=== PATIENT | female | born 1990 | race Caucasian/White ===

== ENCOUNTER 2020-03-26 08:59 | Outpatient (CLI) | payer OTHER, SELFPAY ==
--- NOTE | 2020-04-02 10:20 | SLEEP_ITS ---
Home Sleep Test DATE OF STUDY: 03/26/2020 ORDERING PHYSICIAN: Luis Miguel Lisa MD. REASON FOR THIS STUDY: Excessive fatigue, poor sleep. HISTORY: This patient is a 29-year-old female, 5 feet 7 inches tall, weighing 182 pounds with a body mass index of 28.5. She has constant fatigue and tiredness. She has no energy during the day. She looks forward to going to sleep as soon as she wakes in the morning because she is so tired. Her sleep is non-refreshing. She had poor sleep her entire life. She rarely awakens from sleep feeling short of breath. She rarely awakens at night with heartburn, belching, or coughing. She rarely snores. She never snores loudly enough that others complain about it. There is a family history with her mother having sleep apnea. She occasionally has trouble sleeping if she has a cold. She occasionally wakes up gasping for breath at night. She does not have breathing problems at night observed by others. She rarely sweats excessively at night. She frequently notices her heart pounding or beating irregularly at night. She occasionally falls asleep during the day, never involuntarily and never while driving. She does not have loss of muscle tone with strong emotion. She rarely has daytime difficulties due to excessive sleepiness. She does not feel paralyzed on waking or falling asleep and does not have vivid dreamlike scenes upon awakening or falling asleep. She is never afraid to go to sleep. She rarely has nightmares. She frequently remembers her dreams. She occasionally has racing thoughts, never feels sad or depressed. She occasionally has anxiety. She frequently has muscular tension. She occasionally notices parts of her body jerking. She does not kick at night. She occasionally has crawly achy feelings in the legs and has leg pain at night. She rarely has morning jaw pain. She occasionally grinds her teeth during sleep. She frequently is bothered by pain during the day. She is occasionally awakened by pain during the night. She occasionally wakes up feeling stiff in the morning with sore achy muscles or pain in the neck and spine joint. She has dizziness, fatigue, headaches, palpitations, and bowel disturbance. Normal bedtime is 9 p.m., taking 15 minutes to fall asleep, typically waking 5 times with most of her awakenings being after 4:30 in the morning. When she does wake, she will use the bathroom around 4:30 a.m., she will try to sleep again for another hour before she has to get up around 5 a.m. She goes to bed on the weekends between 9 and 10 p.m. and will wake up at 6 a.m. on the weekends. She may stay in the bed an hour after waking. She tries to sleep longer on the weekend, but her body is used to getting up earlier. She does take short naps in the afternoon or evening. A short nap is not refreshing. She is usually drowsy in the morning for 3 hours or longer. MEDICAL COMORBIDITIES: 1. History of stroke in July 2010 with right-sided weakness and expressive aphasia. This was in the left frontal lobe, the right frontal lobe, and the right temporal occipital lobe. 2. 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 3. History of epicardial and endocardial ablation. 4. Anemia. 5. Cardiomyopathy. 6. Premature ventricular contractions. MEDICATIONS: Fluticasone 50 mcg 2 sprays each nostril daily, gabapentin 300 mg daily, lisinopril 5 mg twice a day, Norethindrone 0.35 mg daily, Rivaroxaban 20 mg daily. HABITS: Never smoked tobacco. Caffeine 1-2 beverages daily. Alcohol, 1 to 2 per week. No recreational drugs. DESCRIPTION OF THE STUDY: On the [place] Sleepiness Scale, her score is 6. This was conducted as an unattended type 3 portable home sleep test with 4 channel monitoring in
== END 2020-03-26 09:00 | disposition home or self-care (01) ==
LOC: ANHCSM 09:18
PROVIDERS: Visit Provider Internal Medicine Cardiovascular Disease
DX: G47.10 Hypersomnia, unspecified (principal)
CPT/HCPCS: 95806

== ENCOUNTER 2020-06-25 03:44 | Outpatient (CLI) | payer OTHER, SELFPAY ==
[2020-06-25 20:39] LABS: SARS-CoV-2 RNA PCR Positive
== END 2020-06-25 03:45 | disposition home or self-care (01) ==
LOC: ANHCOVIDDT 03:44
PROVIDERS: Visit Provider Internal Medicine Critical Care Medicine
DX: U07.1 COVID-19 (principal)
CPT/HCPCS: 87635; C9803; U0003

== ENCOUNTER 2020-08-14 13:38 | Outpatient (CLI) | payer OTHER, SELFPAY ==
--- NOTE | ~2020-08-14 | CT_ITS ---
EXAMINATION: CT brain wo con EXAM DATE: 08/14/2020 13:56 INDICATION: Stroke follow-up. TECHNIQUE: Spiral CT of the head was performed without contrast. Axial, coronal and sagittal images were reviewed. The dose-length product (DLP) for this examination was 529.67 mGy-cm. The exposure w as tailored according to patient size, and iterative reconstruction (ASIR) was used as additional dos e reduction technique. Comparison is made to prior examination from 03/08/2013. FINDINGS: There is no acute intraparenchymal hemorrhage. No evidence of intraparenchymal brain mass lesion. No evidence of acute infarction. There is no mass effect or midline shift. The ventricles are normal in size. There are no extra-axial collections. There are no acute calvarial fractures. T he orbits are unremarkable. Soft tissue is unremarkable. The visualized sinuses and mastoid air bebeto ls are well aerated. IMPRESSION: 1. Unremarkable head CT examination. Reviewed, dictated and finalized at location B. Y LEVEL ACCOUNT MANAGER
== END 2020-08-14 13:39 | disposition home or self-care (01) ==
LOC: ANHIMG 13:42
PROVIDERS: PCP Family Medicine
DX: Z86.73 Personal history of transient ischemic attack (TIA), and cerebral infarction without residual deficits (principal)
CPT/HCPCS: 70450

== ENCOUNTER 2020-09-17 00:25 | Outpatient (CLI) | payer OTHER, SELFPAY ==
[2020-09-17 17:34] LABS: SARS-CoV-2 RNA PCR Negative
== END 2020-09-17 00:26 | disposition home or self-care (01) ==
LOC: ANHCOVIDDT 00:25
PROVIDERS: PCP Family Medicine; Visit Provider Internal Medicine Critical Care Medicine
DX: R68.89 Other general symptoms and signs (principal); Z20.822 Contact with and (suspected) exposure to COVID-19
CPT/HCPCS: C9803; U0003; U0005

== ENCOUNTER 2020-09-19 08:38 | Outpatient (CLI) | payer OTHER, SELFPAY ==
--- NOTE | 2020-09-21 11:48 | WPDSLEEPSTUD ---
Sleep Study Date of Study: 09/19/20 Ordering Provider: Luis Miguel Lisa MD; primary is Simone Dubon MD Interpreting Physician: Tete Drummond MD Sleep Study Type: Polysomnogram Height: 1.7 m Weight: 83.915 kg Body Mass Index: 29.0 Neck Circumference: 35.56 cm [employer]: 8 Reason for Sleep Study Excessive daytime sleepiness, impaired daytime functioning Home Sleep Test Mar 26, 2020 that was negative; AIi 1, lowest saturation 93% Sleep History Prasanna Mack is a 30 year old female with constant fatigue and tiredness. She has no energy during the day. She looks forward to going to sleep as soon as she wakes in the morning because she is so tired. Her sleep is non-refreshing. She had poor sleep her entire life. She rarely awakens from sleep feeling short of breath. She rarely awakens at night with heartburn, belching, or coughing. She rarely snores. She never snores loudly enough that others complain about it. There is a family history with her mother having sleep apnea. She occasionally has trouble sleeping if she has a cold. She occasionally wakes up gasping for breath at night. She does not have breathing problems at night observed by others. She rarely sweats excessively at night. She frequently notices her heart pounding or beating irregularly at night. She occasionally falls asleep during the day, never involuntarily and never while driving. She does not have loss of muscle tone with strong emotion. She rarely has daytime difficulties due to excessive sleepiness. She does not feel paralyzed on waking or falling asleep and does not have vivid dreamlike scenes upon awakening or falling asleep. She is never afraid to go to sleep. She rarely has nightmares. She frequently remembers her dreams. She occasionally has racing thoughts, never feels sad or depressed. She occasionally has anxiety. She frequently has muscular tension. She occasionally notices parts of her body jerking. She does not kick at night. She occasionally has crawly achy feelings in the legs and has leg pain at night. She rarely has morning jaw pain. She occasionally grinds her teeth during sleep. She frequently is bothered by pain during the day. She is occasionally awakened by pain during the night. She occasionally wakes up feeling stiff in the morning with sore achy muscles or pain in the neck and spine joint. She has dizziness, fatigue, headaches, palpitations, and bowel disturbance. Normal bedtime is 9 p.m., taking 15 minutes to fall asleep, typically waking 5 times with most of her awakenings being after 4:30 in the morning. When she does wake, she will use the bathroom around 4:30 a.m., she will try to sleep again for another hour before she has to get up around 5 a.m. She goes to bed on the weekends between 9:00 p.m. and 10 p.m., wakes up at 6:00 a.m. on the weekends. She may stay in the bed an hour after waking. She tries to sleep longer on the weekend, but her body is used to getting up earlier. She does take short naps in the afternoon or evening. A short nap is not refreshing. She is usually drowsy in the morning for 3 hours or longer. HABITS: Never smoked tobacco. Caffeine 1-2 beverages daily. Alcohol, 1 to 2 per week. No recreational drugs. 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
[2020-09-21 13:37] VITALS: BMI 29.0
--- NOTE | 2020-09-21 13:38 | WPDSLEEPSTUD ---
Sleep Study Date of Study: 09/20/20 Ordering Provider: Luis Miguel Lisa MD; Simone Dubon is primary care Sleep Study Type: Multiple Sleep Latency Test Height: 1.7 m Weight: 83.915 kg Body Mass Index: 29.0 [place]: 6 Reason for Sleep Study This multiple sleep latency follows a nocturnal polysomnogram with 339.5 minutes, slightly short of the 360 minutes which is standard. The patient is having this test for evaluation of excessive daytime sleepiness. Sleep History See report from Sep 18, 2020. 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 Stroke Jul 2010; right-sided weakness and expressive aphasia; L frontal lobe, R frontal, L temp-occipital lobes Surgical History Surgical History H/O cardiac radiofrequency ablation H/O colonoscopy H/O endoscopy H/O exploratory laparotomy [place] teeth removed Family History Family History Father Hypertension Patient's father is in good health Grandparent Carcinoma of colon Diabetes mellitus Endometrial cancer Breast cancer Sibling Patient's brother is in good health Mother Family history of gynecological problem Social History Social History Smoking status: Never smoker Second hand tobacco smoke exposure: No Alcohol intake: current Medications Home Medications Medication Instructions Recorded Confirmed Type levonorgestrel 20 mcg/24 hours (6 1 device I-UTERINE ONCE 08/23/19 History yrs) 52 mg intrauterine device lisinopril 10 mg tablet 10 mg PO DAILY 08/23/19 History rivaroxaban 20 mg tablet 20 mg PO DAILY 08/23/19 History gabapentin 300 mg capsule 300 mg PO DAILY 01/19/20 History norethindrone (contraceptive) 0.35 0.35 mg PO DAILY #84 tablet 02/01/20 Rx mg tablet ivabradine 5 mg tablet 5 mg PO BID 08/01/20 History Sleep Procedure The standard montage included EEG, EOG, submental EMG, EKG, respiratory flow and snore channel monitoring. The test was conducted in the usual manner an hour and a half after waking. The patient was given 5 opportunities to nap in a quiet dark room free from distraction. Nap number Start time of nap End time of nap Sleep latency Rem latency 1 8:28 a.m. 8:48 a.m. 20 minutes N/A 2 10:33 a.m. 10:53 a.m. 20 minutes N/A 3 12:33 p.m. 12:54 p.m. 14:38 N/A 4 2:33 p.m. 3:06 p.m. 13:35 N/A 5 4:33 p.m. 4:53 p.m. 20 minutes N/A Nap 1 the patient was awake with no sleep. Nap 2 she was awake no sleep and complained of chest pain Nap 3 she slept, no REM sleep Nap 4 slept, no REM Nap 5 patient was awake no sleep She napped on 2/5 naps, mean sleep latency was 16 minutes 55 seconds which is normal. Sleep Architecture N/A Respiratory Analysis N/A Arousals N/A Periodic Limb Movements N/A Oximetry Data N/A Snoring Profile N/A Cardiac Profile N/A EEG Profile N/A Assessment and Plan Additional Plan This mean sleep latency test on September 20 2020 is normal. The patient slept on 2 of 5 naps with a mean sleep latency is 16 minutes and 55 seconds. There is no evidence of hypersomnia based on this test which followed approximately 6 hours of sleep the night before. Clinical correlation is recommended.
[2020-09-21 14:56] VITALS: BMI 29.0
== END 2020-09-19 08:39 | disposition home or self-care (01) ==
LOC: ANHCSM 08:40
PROVIDERS: PCP Family Medicine; Visit Provider Internal Medicine Cardiovascular Disease
DX: G47.10 Hypersomnia, unspecified (principal); F51.8 Other sleep disorders not due to a substance or known physiological condition
CPT/HCPCS: 95805; 95810

== ENCOUNTER 2021-03-26 08:27 | Outpatient (CLI) | payer OTHER, SELFPAY ==
--- NOTE | 2021-03-26 11:00 | NEURO_ITS ---
Impression: # Complains of numbness of left hand. # No Carpal Tunnel Syndrome. # Left ulnar neuropathy across the elbow. # Normal needle/EMG exam including 1st DI and Abd Dig Min. Nerve Conduction Studies Anti Sensory Summary Table Stim Site NR Peak (ms) P-T Amp (?V) Site1 Site2 Delta-P (ms) Dist (cm) Norm (m/s) Left Median Anti Sensory (2-3nd Digit) Wrist 2.6 90.7 Wrist 2-3nd Digit 2.6 14.0 54 Wrist 2.6 98.7 Wrist 2-3nd Digit 2.6 14.0 54 Left Radial Anti Sensory (Base 1st Digit) Wrist 1.7 51.2 Wrist Base 1st Digit 1.7 0.0 Left Ulnar Anti Sensory (5th Digit) Wrist 2.6 84.6 Wrist 5th Digit 2.6 14.0 54 Motor Summary Table Stim Site NR Onset (ms) O-P Amp (mV) Site1 Site2 Delta-0 (ms) Dist (cm) Norm (m/s) Left Median Motor (Abd Poll Brev) Wrist 2.6 5.7 Elbow Wrist 4.8 29.0 60 Elbow 7.4 5.0 Left Ulnar Motor (Abd Dig Minimi) Wrist 2.5 7.3 A Elbow Wrist 5.9 29.0 49 A Elbow 8.4 5.8 B Elbow Wrist 3.7 21.0 57 B Elbow 6.2 5.4 F Wave Studies NR F-Lat (ms) L-R F-Lat (ms) Left Median (Mrkrs) (Abd Poll Brev) 25.78 Left Ulnar (Mrkrs) (Abd Dig Min) 27.25 EMG Side Muscle Nerve Root Ins Act Fibs Amp Dur Recrt Comment Left 1stDorInt Ulnar C8-T1 Nml Nml Nml Nml Nml Left Ext Indicis Radial (Post Int) C7-8 Nml Nml Nml Nml Nml Left Ext Digitorum Radial (Post Int) C7-8 Nml Nml Nml Nml Nml Left BrachioRad Radial C5-6 Nml Nml Nml Nml Nml Left PronatorTeres Median C6-7 Nml Nml Nml Nml Nml Left Abd Poll Brev Median C8-T1 Nml Nml Nml Nml Nml Left ABD Dig Min Ulnar C8-T1 Nml Nml Nml Nml Nml MTDD
== END 2021-03-26 08:28 | disposition home or self-care (01) ==
PROVIDERS: PCP Internal Medicine; Visit Provider Internal Medicine
DX: G56.22 Lesion of ulnar nerve, left upper limb (principal)
CPT/HCPCS: 95886; 95909

== ENCOUNTER 2021-07-29 12:23 | Outpatient (CLI) | payer OTHER, SELFPAY ==
--- NOTE | ~2021-07-29 | XR_ITS ---
XR ankle LT min 3V, XR foot LT min 3V 07/29/2021 12:44 Indication: Ankle and foot pain after injury Procedure: 4 views left ankle and 4 views left foot Comparison: No prior studies for comparison. Findings: No fracture, subluxation or dislocation. Ankle mortise intact. Lisfranc joint intact. Talar dome is normal. No focal soft tissue abnormality. No foreign bodies. Impression: 1: No acute bone or joint abnormality. Reviewed, dictated and finalized at location A. UTIVE ADMIN Impression: 1: No acute bone or joint abnormality. Impression: 1: No acute bone or joint abnormality.
== END 2021-07-29 12:24 | disposition home or self-care (01) ==
LOC: ANHBWCIMG 12:29
PROVIDERS: PCP Internal Medicine; Visit Provider Orthopaedic Surgery
DX: M25.572 Pain in left ankle and joints of left foot (principal); M79.672 Pain in left foot
CPT/HCPCS: 73610; 73630

== ENCOUNTER 2021-10-16 14:59 | Outpatient (CLI) | payer OTHER, SELFPAY ==
--- NOTE | ~2021-10-16 | CT_ITS ---
EXAMINATION: CT sinus wo con DATE: 10/16/2021 15:17 INDICATION: Chronic sinusitis TECHNIQUE: Computed tomography (CT) of the paranasal sinuses was performed without contrast. Iterativ e reconstruction technique was employed. Exam dose: 318.31 mGy-cm total exam DLP. COMPARISON: 08/14/2020 CT brain FINDINGS: There is rightward deviation of nasal septum. There is intralamellar cell of both middle nasal turbinates and lenin bullosa of the left middle safia al turbinate. There is prominent symmetric soft tissue swelling of the nasal turbinates. THe osteomeatal units are patent. There is a 9 mm mucus retention cyst or polyp of the right maxillary sinus superior wall. There is a 1.5 mm deep 4.5 mm wide mucous retention cyst or small polyp of the medial wall of the lef t maxillary sinus. Small focal area of soft tissue thickening at the floor of each maxillary sinus. The paranasal sinuses otherwise are normally developed and aerated. The mastoid air cells are normally developed and aerated. IMPRESSION: Small mucus retention cysts or polyps and minimal focal mucoperiosteal thickening of the maxillary sinuses Rightward deviation of nasal septum Soft tissue swelling of the nasal turbinates Interlamellar cell of both middle nasal turbinates and lenin bullosa of left middle nasal turbinate Reviewed, dictated and finalized at Location A. Reviewed, dictated and finalized at location A. ICE CARE CONSULTANT IMPRESSION: Small mucus retention cysts or polyps and minimal focal mucoperios teal thickening of the maxillary sinuses Rightward deviation of nasal septum Soft tissue swelling of the nasal turbinates Interlamellar cell of both middle nasal turbinates and lenin bullosa of left m iddle nasal turbinate
== END 2021-10-16 15:00 | disposition home or self-care (01) ==
PROVIDERS: PCP Internal Medicine; Visit Provider Otolaryngology
DX: J32.9 Chronic sinusitis, unspecified (principal); J34.2 Deviated nasal septum; J34.3 Hypertrophy of nasal turbinates; J34.89 Other specified disorders of nose and nasal sinuses; R09.82 Postnasal drip
CPT/HCPCS: 70486

== ENCOUNTER → 2021-11-19 00:23 | Outpatient (CLI) | payer OTHER, SELFPAY ==
[2021-11-19 11:11] LABS: SARS-CoV-2 RNA PCR Negative
== END ==
PROVIDERS: PCP Internal Medicine; Visit Provider Otolaryngology
DX: Z01.812 Encounter for preprocedural laboratory examination (principal); Z20.822 Contact with and (suspected) exposure to COVID-19
CPT/HCPCS: C9803; U0003; U0005

== ENCOUNTER 2021-11-22 00:59 | Day surgery (SDC) | payer OTHER, SELFPAY ==
[2021-11-18 08:50] VITALS: BMI 30.6
--- NOTE | 2021-11-18 08:51 | PC.NURSE ---
Report to the Outpatient Waiting Room, entrance under the green pavilion located off [facility], at time _0600_ on date _[id number]_. OR Time: _0730_. - You and your visitor will be asked a series of questions to screen for COVID 19 for your protection. - A mask is required within the hospital. Preoperative COVID Testing Requirements: No COVID Test needed if: (proof is required; if not received patient will have Rapid Test prior to entry) - Patient has received COVID Vaccine at least 14 days prior to procedure date or - Patient has positive COVID test result within last 90 days of surgery date. COVID Test needed if above criteria is not met If not COVID vaccinated a COVID test must be conducted within 72 hours of surgery and patient is asked to isolate self from time of testing until procedure. You will go to the [facility] Testing Site for your COVID testing. The [facility] site is located at the corner of [address] [facility]. You will only be called if COVID results are positive and your surgeon may reschedule your elective surgery date. Patients may have clear liquids (water, carbonated beverages, clear teas, apple juice) until 3 hours prior to surgery with a maximum of 20 ounces. - No food from midnight until time of surgery - Infants may have breast milk until 4 hours before surgery, formula 6 hours prior to surgery. - Children will be allowed to drink immediately following surgery. If applicable, please bring a bottle or sippy cup to assist with drinking. Juice, water, soda, and popsicles are readily available. For infants on formula, please bring formula the day of surgery. Pacifiers are allowed. Take the following medications with a SIP of water the morning of surgery: Sotolol and Gabepentin Medications to discontinue per physician Esme call Dr Green to discuss stopping this. Date to take last dose Please no make-up, nail northern irish, hairspray, perfume, deodorant, or body powder the day of surgery. No jewelry (including any body piercings) or valuables the day of surgery, leave them at home. Please take a shower or bath the night before, or the morning of, surgery with an antibacterial soap. Wear comfortable, loose fitting clothing. Children are encouraged to wear pajamas. - Jewelry must be removed prior to entering the operating room. Rings and piercings that are not removed may be cut off. - The hospital will not accept responsibility for valuables. - Please leave all valuables, including medications, at home the day of surgery. If you are going home after surgery, a licensed nascar driver must drive you home. - NO public transportation without another adult. - We recommend that an adult stay with you for 24 hours following discharge. - We also recommend that you do not drive, make important decision, drink alcoholic beverages, or take any drugs that were not prescribed by your health care provider for at least 24 hours after your discharge time. For Pediatric surgeries, we recommend two adults accompany the child home (only one inside the building at this time). One visitor will be allowed to accompany the patient into the hospital. Patients visitor will be instructed to remain with patient at all times or leave the building. We will allow the visitor to come back to the postoperative area when patient is ready. Follow any additional instructions given to you from your surgeon. Telephone instructions given to ____Patient and asked if any additional questions and then verbalized understanding. Patient advised to call surgeon office or pre surgery nurse liaison [phone] if any additional questions.
--- NOTE | 2021-11-21 07:49 | PM.IMHP ---
H&P: HPI History of Present Illness Date/Time: 11/21/21 07:49 Chief Complaint: Septal deviation nasal obstruction nasal congestion turbinate hypertrophy chronic sinusitis facial pressure facial pain lenin bullosa Narrative: patient presents for planned surgical procedure no change in symptoms no change in medical history Review of Systems Constitutional: Constitutional: Denies fatigue, Denies fever(s) and Denies lethargy Eyes: Eyes: Denies blurry vision and Denies change in vision ENT: Reports as per HPI Cardiovascular: Cardiovascular: Denies chest pain Respiratory: Respiratory: Denies cough Endocrine: Endocrine: Denies fatigue Hematologic/Lymphatic: Hematologic/Lymphatic: Denies easy bleeding, Denies easy bruising and Denies lymphadenopathy Allergic/Immunologic: Allergic/Immunologic: Denies seasonal rhinorrhea PENDING SALE TO [facility] Past Medical History Medical History Actinic keratoses Adenomyosis Anemia Broken foot Left Cardiac segmental configuration with atrial configuration unknown, ventricular D-loop, and inverted normally aligned great arteries Cerebrovascular accident (CVA) Chest tightness Dysfunctional gallbladder Endometriosis of peritoneum Epigastric abdominal pain Gastroesophageal reflux disease without esophagitis Heart beat abnormality History of CVA (cerebrovascular accident) Left ankle sprain 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 Lightheadedness prison (current) use of antithrombotics/antiplatelets 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 Lower abdominal pain Migraine without aura and with status migrainosus, not intractable Nasopharyngitis PVC (premature ventricular contraction) Right foot pain Right lower quadrant abdominal pain Right upper quadrant pain SOB (shortness of breath) on exertion Stroke Jul 2010; right-sided weakness and expressive aphasia; L frontal lobe, R frontal, L temp-occipital lobes Surgical History Surgical History H/O cardiac radiofrequency ablation H/O colonoscopy H/O endoscopy H/O exploratory laparotomy [place] teeth removed Family History Family History Father Hypertension Patient's father is in good health Grandparent Carcinoma of colon Diabetes mellitus Endometrial cancer Breast cancer Sibling Patient's brother is in good health Mother Family history of gynecological problem Other Brain cancer Cerebrovascular accident Heart disease Skin cancer Social History Social History Smoking status: Never smoker Second hand tobacco smoke exposure: No Alcohol intake: current Drinks per week: 1 Alcohol use details: drinks wine and vodka Substance use: never Substance use type: does not use 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 Gender identity (if verbalized by the patient): Female Spiritual care concerns: No Meds Home Medications and Allergies Home Medications Medication Instructions Recorded Confirmed Type lisinopril 10 mg tablet 10 mg PO DAILY 08/23/19 11/18/21 History rivaroxaban 20 mg tablet 20 mg PO DAILY 08/23/19 11/18/21 History gabapentin 300 mg capsule 900 mg PO DAILY cap 11/15/20 11/18/21 History azelastine 137 mcg (0.1 %) nasal 1 spray INTRANASAL Q12H #30 ml 09/25/21 11/18/21 Rx spray aerosol fluticasone propionate 50 2 spray INTRANASAL BID #16 ml 09/25/21 11/18/21 Rx mcg/actuation nasal spray,suspension sotalol 80 mg PO BID 11/18/21 11/18/21 History Allergies Allergy/AdvReac Type Severity Reaction Status Date / Time No Known Allergies Allergy Verified 11/18/21 08:40 Exam Const: General: cooperative, healthy appearing, comfortable, well developed and alert HENMT: Head: normal to inspection, normocephalic and atrau
[2021-11-22] VITALS (11 sets, daily range): BP systolic 102–133; BP diastolic 37–73; PULSE 52–71; RESP 12–16; TEMP 36.1–36.8; O2SAT 96–100
[2021-11-22] MEDS: ACETAMINOPHEN 500 MG TABLET 1000 MG PO (06:13)
[2021-11-22] MEDS: LACTATED RINGERS 1,000 ML 30 ML IV CONT ×2 (06:40→09:35)
--- NOTE | 2021-11-22 07:09 | WPDHPUPDATE1 ---
History and Physical Update Update Date/Time: 11/22/21 07:09 History and Physical has been reviewed, including an updated exam of the patient. There are NO changes in the patient's condition. Risks, benefits, and alternatives have been discussed and questions answered. Patient agrees to proceed with procedure.
--- NOTE | 2021-11-22 07:16 | WPDANESEPPF ---
Anes - Initial Pre Proc Eval Procedure: Operation Date: 11/22/21 07:30 Proposed Procedures p Image Guided Bilateral Inferior Turbinectomy with Outfracture, Resection Shanae Bullosa, Bilateral Maxillary Antrostomy, Anterior Ethmoidectomy - Sharif Green MD s Endoscopic Septoplasty - Sharif Green MD Date/Time: 11/22/21 07:16 Surgeon: Sharif Green MD Pre Op Diagnosis: Chronic Sinusitis Patient Data Age: 31 Gender: F Height: 1.7 m Weight: 88 kg Last Vital Signs Temp 36.8 C 11/22/21 06:40 Pulse 63 11/22/21 06:40 Resp 16 11/22/21 06:40 BP 104/63 11/22/21 06:40 Pulse Ox 99 11/22/21 06:40 Allergies Allergy/AdvReac Type Severity Reaction Status Date / Time No Known Allergies Allergy Verified 11/18/21 08:40 Home Medications Medication Instructions Recorded Confirmed Type lisinopril 10 mg tablet 10 mg PO DAILY 08/23/19 11/22/21 History rivaroxaban 20 mg tablet 20 mg PO DAILY 08/23/19 11/22/21 History gabapentin 300 mg capsule 900 mg PO DAILY cap 11/15/20 11/22/21 History azelastine 137 mcg (0.1 %) nasal 1 spray INTRANASAL Q12H #30 ml 09/25/21 11/18/21 Rx spray aerosol fluticasone propionate 50 2 spray INTRANASAL BID #16 ml 09/25/21 11/18/21 Rx mcg/actuation nasal spray,suspension sotalol 80 mg PO BID 11/18/21 11/22/21 History Patient hx anesthesia problems: none Family hx anesthesia problems: none Results Review: All pre-operative results and documents have been reviewed as part of the pre-operative evaluation. 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 Lightheadedness [facility] (current) use of antithrombotics/antiplatelets [facility] current use of anticoagulant Lower abdominal pain Migraine without aura and with status migrainosus, not intractable Nasopharyngitis PVC (premature ventricular contraction) Right foot pain Right lower quadrant abdominal pain Right upper quadrant pain SOB (shortness of breath) on exertion Stroke Jul 2010; right-sided weakness and expressive aphasia; L frontal lobe, R frontal, L temp-occipital lobes Surgical History Surgical History H/O cardiac radiofrequency ablation H/O colonoscopy H/O endoscopy H/O exploratory laparotomy [place] teeth removed Family History Family History Father Hypertension Patient's father is in good health Grandparent Carcinoma of colon Diabetes mellitus Endometrial cancer Breast cancer Sibling Patient's brother is in good health Mother Family history of gynecological problem Other Brain cancer Cerebrovascular accident Heart disease Skin cancer Social History Social History Smoking status: Never smoker Second hand tobacco smoke exposure: No Alcohol intake: current Drinks per week: 1 Alcohol use details: drinks wine and vodka Substance use: never Substance use type: does not use Living arrangements: alone 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
[2021-11-22] MEDS: ceFAZolin 2 GM/D5W 50 ML 2 GM/50 ML BAG IVPB (07:22)
[2021-11-22] MEDS: OXYMETAZOLINE HCL 0.05% NAS 15 ML BTL (*BKC) 1 SPRAY NASAL (07:36)
[2021-11-22] MEDS: MUPIROCIN 2% OINT 22 GM TUBE 1 APPLIC EACH NARE (08:43)
[2021-11-22] MEDS: LIDO 1%/EPINEPHRINE/PF 1:200,000 30 ML VIAL XX (08:54)
[2021-11-22] MEDS: fentaNYL CITRATE INJ (*CRX) 100 MCG/2 ML VIAL 25 MCG IV PUSH ×8 (09:19→09:54)
--- NOTE | 2021-11-22 09:21 | W.PM.PROC2 ---
Procedure Note - Detailed Date of Procedure 11/22/21 Pre-op Diagnosis Chronic Sinusitis, nasal obstruction, septal deviation, inferior turbinate hypertrophy, bilateral lenin Post-op Diagnosis Same Procedure Performed Image guided endoscopic bilateral maxillary antrostomies image guided endoscopic bilateral anterior ethmoidectomies ending, endoscopic assisted septoplasty, inferior turbinate submucosal resection with outfracture bilateral, resection of lenin bullosa bilateral Surgeon Sharif Green MD Anesthesia General Indications See above Findings Has severely S shaped deviated septum straight following procedure severely hypertrophied turbinates well reduced following procedure lenin opened aforementioned sinuses open bilateral Dawn cells opened minimal blood loss Description of Procedure Patient identified consent verified. Patient brought operating room. Time-out performed. Anesthesia induced endotracheal tube secured in the airway. Image guidance initiated Afrin-soaked pledgets placed allowed to sit for 5 minutes then removed. Patient prepped and draped. Second time-out performed. Total of 10-15 cc 1% lidocaine 1 100,000 parts epinephrine injected in the bilateral nasal septum submucoperichondrial plane, inferior turbinates, lenin bullosa, [place] incision made with 15 blade left nasal septum left mucoperichondrial flap elevated 7 Georgian suction no perforation osteotome utilized crust septum right side elevated 7 Georgian suction, small perforations. Deviated septum removed with osteotome Juan M [place] forceps Patrice forceps. Septum closed with 2 interrupted 5 0 fast gut sutures. Turbinates reduced 2 mm turbinate blade submucosally bilaterally. Outfractured with [place]. Lenin removed with sickle blade straight through cut micro debrider. Maxillary antrostomies performed with double ball tip probe backbiter straight through cut micro debrider. Anterior ethmoidectomies performed with [place] micro debrider. Image guidance utilized throughout the sinus portion the procedure. No complications no intra crit no cranial intracranial orbital injury. Total blood loss 25 cc. Zheng splints placed bilaterally confirmed to be lateral to the middle turbinates. Sutured anteriorly using a mattress 3-0 nylon suture. I performed all dictated portions of the procedure. Care the patient turned over to Anesthesiology. No complications. Estimated Blood Loss -25.0 Drains No Packing No Pathology None sent Complications No immediate complications Condition Stable Disposition PACU
[2021-11-22] MEDS: oxyCODONE HCL (*CRX) 5 MG TAB IR PO ×2 (10:24→11:04)
[2021-11-22] MEDS: HYDROmorphone HCL INJ (*CRX) 1 MG/ML SYR IV PUSH (11:07)
[2021-11-22] MEDS: ONDANSETRON INJ 4 MG/2 ML VIAL IV PUSH (11:13)
[2021-11-22] MEDS: diphenhydrAMINE HCl INJ 50 MG/ML VIAL 25 MG IV PUSH (12:12)
[2021-11-22] MEDS: SCOPOLAMINE 1.5 MG PATCH TRANSDERM (12:12)
== END 2021-11-22 12:49 | disposition home or self-care (01) ==
PROVIDERS: PCP Internal Medicine; Visit Provider Otolaryngology
PROC: (CPT 31254; principal; 2021-11-22 07:30)
PROC: (CPT 30520; 2021-11-22 07:30)
DX: J32.9 Chronic sinusitis, unspecified (principal); J34.3 Hypertrophy of nasal turbinates; J34.2 Deviated nasal septum; R09.81 Nasal congestion; R09.82 Postnasal drip; J34.89 Other specified disorders of nose and nasal sinuses; I49.3 Ventricular premature depolarization; D64.9 Anemia, unspecified; K21.9 Gastro-esophageal reflux disease without esophagitis; Z86.73 Personal history of transient ischemic attack (TIA), and cerebral infarction without residual deficits; E66.9 Obesity, unspecified; Z68.30 Body mass index [BMI] 30.0-30.9, adult
CPT/HCPCS: 31254; 31256; 31240; 61782; 30520; 30140; A9270; C9803; J0330; J0690; J1100; J1170; J1200; J2001; J2250; J2370; J2405; J3010; J7120; U0003; U0005

== ENCOUNTER 2022-03-07 15:34 | Outpatient (CLI) | payer OTHER, SELFPAY ==
--- NOTE | ~2022-03-07 | XR_ITS ---
XR chest 2V DATE: 03/07/2022 15:53 INDICATION: Cough TECHNIQUE: PA and lateral views COMPARISON: 06/29/2018 PA and lateral chest FINDINGS: Anterior chest wall electronic shelter monitor device. Normal heart size. No hilar or mediastinal enlargement. Moderate bilateral hyperinflation. No pulmonary infiltrate or consolidation, pleural effusion or pulm onary vascular congestion or pneumothorax is detected. Included skeletal structures are unremarkable. IMPRESSION: Moderate hyperinflation; no active cardiopulmonary disease Reviewed, dictated and finalized at location B.
== END 2022-03-07 15:35 | disposition home or self-care (01) ==
PROVIDERS: PCP Internal Medicine
DX: R06.9 Unspecified abnormalities of breathing (principal); R91.8 Other nonspecific abnormal finding of lung field
CPT/HCPCS: 71046

== ENCOUNTER 2022-04-23 12:45 | Outpatient (CLI) | payer OTHER, SELFPAY ==
[2022-04-23 19:48] LABS: Basophils Absolute Auto 0.1 K/mm3 (0.0-0.1); Eosinophils Absolute Auto 0.1 K/mm3 (0-0.3); Eosinophils Percent Auto 1.7 % (0-4.4); Hematocrit 42.2 % (37.0-47.0); Hemoglobin 13.6 g/dL (12.0-15.0); Immature Granulocyte Absolute 0.02 K/mm3 (0.00-0.031); Immature Granulocyte Percent A 0.3 % (0-0.5); Lymphocytes Percent Auto 25.4 % (18.3-44.2); Mean Corpuscular HGB Conc 32.2 g/dl (32-36); Mean Corpuscular Hemoglobin 29.7 pg (26-34); Mean Corpuscular Volume 92.1 fl (80-100); Mean Platelet Volume 11.9 fl (7.4-10.4); Monocytes Absolute Auto 0.5 K/mm3 (0.1-0.6); Monocytes Percent Auto 6.9 % (2.6-8.5); Neutrophils Absolute Auto 4.6 K/mm3 (1.3-6.7); Neutrophils Percent Auto 64.7 % (45.5-73.1); Platelet Count Result 209 k/mm3 (150-375); Red Blood Count 4.58 M/mm3 (4.2-5.4); Red Cell Distribution Width 13.2 % (11.5-14.5); White Blood Count 7.1 K/mm3 (4.5-10.0)
== END 2022-04-23 12:46 | disposition home or self-care (01) ==
LOC: ANHGOSHLAB 12:47
PROVIDERS: PCP Family Medicine; Visit Provider Family Medicine
DX: R06.02 Shortness of breath (principal); R05.9 Cough, unspecified
CPT/HCPCS: 36415; 84443; 85025

== ENCOUNTER 2022-07-01 12:28 | Outpatient (CLI) | payer OTHER, SELFPAY ==
--- NOTE | 2022-07-01 16:21 | WPDPFTINT ---
PFT Procedure Performed PFT Procedure Performed Spirometry with Pre/Post Bronchodilator Plethysmography (Lung Vol) Diffusing Cap (DLCO) Flow Vol Loop PFT Interpretation This is a pulmonary function test with pre and post-bronchodilator spirometry, plethysmography and diffusing capacity. The test was performed and results interpreted in accordance with the 2019 and 2005 ATS/ERS Task Force guidelines respectively using the Global Lung Function Initiative-2012 reference equations. Patient demonstrated good effort and cooperation. Reproducibility criteria were met. The quality of the pre bronchodilator spirometry maneuver was Grade A and post bronchodilator spirometry maneuver was Grade A. Findings: Spirometry: The contour the inspiratory and expiratory flow tracing are normal. The pre bronchodilator FVC is 4.68 L, 112% predicted. The pre bronchodilator FEV1 is 3.47 L, 100% predicted. The pre bronchodilator FEV1: FVC ratio is 74%. The post bronchodilator FVC is 4.85 L, representing a 4% increase. The post bronchodilator FEV1 is 3.57 L, representing a 3% increase. The post bronchodilator FEV1: FVC ratio 74%. Plethysmography: The total lung capacity is 6.10 L, 111% predicted. The functional residual capacity is 3.00 L, a 99% predicted. The residual volume is 1.28 L, 81% predicted. Diffusion capacity: The diffusing capacity unadjusted for hemoglobin and carboxyhemoglobin is 19.7, 76% predicted. The diffusing capacity adjusted for alveolar volume is 3.39, 72% predicted. Impression: The spirometry is normal without evidence of an obstructive abnormality. There is no significant improvement after inhaling a single dose of albuterol. The lung volumes are normal. The diffusing capacity unadjusted for hemoglobin and carboxyhemoglobin is normal and mildly decreased when adjusted for alveolar volume. There are no prior studies for comparison
== END 2022-07-01 12:29 | disposition home or self-care (01) ==
LOC: ANHPFT 12:29
PROVIDERS: PCP Family Medicine; Visit Provider Family Medicine
DX: R05.9 Cough, unspecified (principal)
CPT/HCPCS: 94060; 94726; 94729

== ENCOUNTER → 2023-05-29 11:19 | Outpatient (CLI) | payer OTHER, SELFPAY ==
--- NOTE | ~2023-05-29 | CT_ITS ---
Non-contrast CT scan of the Abdomen and Pelvis Clinical indication: Epigastric pain Technique: 2.5 mm axial scans were obtained through the abdomen and pelvis without intravenous or or al contrast. Dose reduction technique was used on this scan by utilizing automated exposure control a nd iterative reconstruction technique. The dose-length product (DLP) was 876.90 mGy-cm. Findings: Images through the lung bases reveal no abnormalities. There is no evidence of renal or ureteral calculi. The kidneys and the ureters are nondilated. The liver, spleen, pancreas, gallbladder, and adrenals appear normal. There is no aortic aneurysm. There is no evidence of bowel obstruction. Normal appendix. Images through the pelvis were performed. There is no evidence of ascites or lymphadenopathy. Urinary bladder unremarkable. IUD in place. No adnexal mass seen. Impression: IUD in place, otherwise unremarkable exam. Reviewed, dictated and finalized at [facility]. Impression: IUD in place, otherwise unremarkable exam.
== END ==
PROVIDERS: PCP Family Medicine; Visit Provider Family Medicine
DX: R10.9 Unspecified abdominal pain (principal); R10.2 Pelvic and perineal pain; K58.0 Irritable bowel syndrome with diarrhea; N80.30 Endometriosis of pelvic peritoneum, unspecified
CPT/HCPCS: 74176

== ENCOUNTER 2023-08-31 12:27 | Outpatient (CLI) | payer OTHER, SELFPAY ==
--- NOTE | ~2023-08-31 | XR_ITS ---
XR hip LT 2V w AP pelvis DATE: 08/31/2023 12:36 INDICATION: Left lateral hip pain for 3 months. No known injury. TECHNIQUE: AP pelvis. AP and lateral views of left hip. COMPARISON: None FINDINGS: Normal alignment at the pubic symphysis and sacroiliac joints. No pelvic fracture or bone d estruction. Hip joint spaces are symmetric and well preserved. No fracture, dislocation, avascular ne crosis or bone destruction of the left hip. IUD overlies the lower mid pelvis. IMPRESSION: Negative left hip Reviewed, dictated and finalized at location B. 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
== END 2023-08-31 12:28 | disposition home or self-care (01) ==
PROVIDERS: PCP Family Medicine; Visit Provider Orthopaedic Surgery
DX: M25.552 Pain in left hip (principal)
CPT/HCPCS: 73502

== ENCOUNTER 2023-11-27 08:09 | Outpatient (CLI) | payer OTHER, SELFPAY ==
[2023-11-27 12:40] LABS: Basophils Absolute Auto 0.1 K/mm3 (0.0-0.1); Basophils Percent Auto 0.9 % (0.2-1.2); Eosinophils Absolute Auto 0.1 K/mm3 (0-0.3); Eosinophils Percent Auto 1.1 % (0-4.4); Hematocrit 41.7 % (37.0-47.0); Hemoglobin 13.5 g/dL (12.0-15.0); Immature Granulocyte Absolute 0.01 K/mm3 (0.00-0.031); Immature Granulocyte Percent A 0.2 % (0-0.5); Lymphocytes Absolute Auto 1.44 K/mm3 (0.9-3.2); Mean Corpuscular HGB Conc 32.4 g/dl (32-36); Mean Corpuscular Hemoglobin 30.5 pg (26-34); Mean Corpuscular Volume 94.1 fl (80-100); Mean Platelet Volume 11.9 fl (7.4-10.4); Monocytes Absolute Auto 0.3 K/mm3 (0.1-0.6); Neutrophils Absolute Auto 3.5 K/mm3 (1.3-6.7); Neutrophils Percent Auto 64.8 % (45.5-73.1); Platelet Count Result 216 k/mm3 (150-375); Red Blood Count 4.43 M/mm3 (4.2-5.4); Red Cell Distribution Width 12.9 % (11.5-14.5); White Blood Count 5.3 K/mm3 (4.5-10.0)
[2023-11-27 12:53] LABS: Anion Gap 5 mmol/L (4-12); Blood Urea Nitrogen 8 mg/dL (7-17); Calcium 10.1 mg/dL (8.4-10.2); Carbon Dioxide 30 mmol/L (22-30); Chloride 104 mmol/L (98-107); Cholesterol 205 mg/dL (0-200); Estimated Glomerular Filt Rate > 60; Glucose 92 mg/dL (65-110); HDL Direct 46 mg/dL; Sodium 139 mmol/L (137-145); Triglycerides 119 mg/dL (<150)
[2023-11-27 13:04] LABS: LDL Cholesterol Direct 117 mg/dL
[2023-11-27 13:19] LABS: Thyroid Stimulating Hormone 0.624 uIU/mL (0.465-4.680)
[2023-12-02 13:48] LABS: ANA Cascade Screen NEGATIVE (NEGATIVE)
== END 2023-11-27 08:10 | disposition home or self-care (01) ==
LOC: ANHGOSHLAB 08:11
PROVIDERS: PCP Family Medicine; Visit Provider Family Medicine
DX: I42.8 Other cardiomyopathies (principal)
CPT/HCPCS: 36415; 80048; 80061; 84443; 85025; 86038; 86225; 86235; 86364

== ENCOUNTER 2024-02-03 15:57 | Outpatient (CLI) | payer OTHER, SELFPAY ==
--- NOTE | ~2024-02-03 | XR_ITS ---
EXAMINATION: XR lumbar spine 2-3V DATE: 02/03/2024 16:20 INDICATION: Low back pain TECHNIQUE: Anteroposterior and lateral views of the lumbar spine, and cone-down lateral view of the l umbosacral junction were obtained. COMPARISON: CT abdomen pelvis dated 06/14/2016 FINDINGS: One-2 mm retrolisthesis L4 on L5. Alignment is otherwise normal. Vertebral body and disc heights are normal. Sacral arches are intact. Normal bilateral sacroiliac joints. T-shaped IUD projecting over th e central pelvis. IMPRESSION: 1. 1-2 mm retrolisthesis L4 on L5. Otherwise unremarkable lumbar spine. 2. IUD. Reviewed, dictated and finalized at location A.
== END 2024-02-03 15:58 | disposition home or self-care (01) ==
LOC: ANHBWCIMG 15:58
PROVIDERS: PCP Family Medicine; Visit Provider Nurse Practitioner Family
DX: M54.50 Low back pain, unspecified (principal); Z97.5 Presence of (intrauterine) contraceptive device
CPT/HCPCS: 72100

== ENCOUNTER 2024-02-10 09:56 | Outpatient (CLI) | payer OTHER, SELFPAY ==
--- NOTE | ~2024-02-10 | MR_ITS ---
EXAMINATION: MR lumbar spine wo con DATE: 02/10/2024 10:31 INDICATION: Radiculopathy, lumbar region. TECHNIQUE: Magnetic resonance imaging (MRI) of the lumbar spine was performed without intravenous con trast. Sequences included sagittal T2-weighted FSE, sagittal T2-weighted FS FSE, sagittal T1-weighted FSE, and axial T2-weighted FSE. COMPARISON: Lumbar spine radiograph 02/03/2024 FINDINGS: Bone alignment is normal. Vertebral body heights are normal. There is mildly decreased disc height at L4-L5 and L5-S1. The distal spinal cord signal intensity is normal. The conus medullaris i s at L1. The following disc levels are specifically discussed: L1-L2: The disc does not extend beyond the endplate margin. There is mild bilateral facet joint osteo arthritis. There is no neural foraminal stenosis. There is no central canal stenosis. L2-L3: The disc does not extend beyond the endplate margin. There is moderate right and mild left fac et joint osteoarthritis. There is no neural foraminal stenosis. There is no central canal stenosis. L3-L4: The disc does not extend beyond the endplate margin. There is severe bilateral facet joint ost eoarthritis. There is no neural foraminal stenosis. There is no central canal stenosis. L4-L5: The disc is bulging and has an annular fissure. There is severe bilateral facet joint osteoart hritis. There is mild bilateral neural foraminal stenosis. There is mild central canal stenosis. L5-S1: The disc is bulging and abuts the right S1 nerve root in right lateral recess. There is modera te bilateral facet joint osteoarthritis. There is moderate right and mild left neural foraminal steno sis. There is mild central canal stenosis. There is moderate stenosis of right lateral recess. IMPRESSION: 1. Moderate lower lumbar spondylosis. Reviewed, dictated and finalized at location A.
== END 2024-02-10 09:57 ==
PROVIDERS: PCP Family Medicine; Visit Provider Nurse Practitioner Family
DX: M47.26 Other spondylosis with radiculopathy, lumbar region (principal)
CPT/HCPCS: 72148

== ENCOUNTER 2024-03-22 12:13 | Outpatient (CLI) | payer OTHER, SELFPAY ==
--- NOTE | ~2024-03-22 | XR_ITS ---
SINGLE AP VIEW PELVIS Ordering provider: Bonnie Brown MD History: . Hip pain . Comparison: August 31, 2023 FINDINGS: BONES: No acute fracture or dislocation. HIP JOINT SPACES: Normal. SACROILIAC JOINT SPACES/: The sacroiliac joint spaces are normal. PUBIC SYMPHYSIS: Normal. SOFT TISSUES: Normal. IUD is noted in the uterus IMPRESSION: No acute osseous abnormality pelvis. Reviewed, dictated and finalized at location A.
== END 2024-03-22 12:14 | disposition home or self-care (01) ==
LOC: ANHBWCIMG 12:16
PROVIDERS: PCP Family Medicine; Visit Provider Physical Medicine & Rehabilitation Pain Medicine
DX: M25.559 Pain in unspecified hip (principal)
CPT/HCPCS: 72170

== ENCOUNTER 2024-12-12 11:59 | Outpatient (CLI) | payer OTHER, SELFPAY ==
--- NOTE | ~2024-12-12 | XR_ITS ---
AP and lateral views of the left hip Clinical history: Pain Findings: No acute fracture or dislocation is seen. Osseous alignment is anatomic. The left hip joint is intact. Soft tissues are unremarkable. Impression: No significant abnormality is seen. Reviewed, dictated and finalized at location . Impression: No significant abnormality is seen.
--- OUTSIDE RECORDS SUMMARY | 2024-12-12 13:51 | XMS_ITS | Clinical Summary ---
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 05/26/20 22 Active Lactobacillus acidophilus 10 billion cell Capsule Take 1 Capsule by mouth daily. Active INTRAUTERINE DEVICE, IUD, INTRAUTERINE by Intrauterine route. Active fluticasone furoate (ARNUITY) 100 mcg/actuation inhaler Take 1 Puff by inhalation daily. Per llama farmer 01/31/20 23 Active HYDROcodone-acetam inophen (NORCO) 5-325 mg tablet Take 1 Tablet by mouth every 4 hours as needed. As needed only 04/04/20 23 Active gabapentin (NEURONTIN) 300 mg capsuleIndications :Cubital tunnel syndrome on left Take 1 capsule by mouth three times daily 270 Capsule 1 07/31/20 23 Active hyoscyamine 0.125 mg sublingual tabletIndications: Irritable bowel syndrome with diarrhea DISSOLVE 1 TABLET UNDER THE TONGUE EVERY 6 HOURS NEEDED FOR SPASM 90 Tablet 14 02/08/20 24 Active diazePAM (VALIUM) 5 mg tablet Take 5 mg by mouth 3 times daily. As needed 01/28/20 24 Active predniSONE (DELTASONE) 20 mg tablet Take 20 mg by mouth see administration instructions. 60mg daily x1 week, then 40mg daily x1 week, then 20mg daily x1 week 01/28/20 24 Active lisinopriL (PRINIVIL) 10 mg tabletIndications: Non-compaction cardiomyopathy (CMS/HCC) Take 0.5 Tablets (5 mg) by mouth 2 times daily. 90 Tablet 10/13/19 25 Active fluticasone propionate (FLONASE) 50 mcg/spray [place], Suspension nasal inhaler Administer 2 Sprays in each nostril daily. 48 Gram 10/13/19 25 Active albuterol sulfate HFA 90 mcg/actuation aerosol inhalerIndications :Chronic cough Take 2 Puffs by inhalation every 4 hours as needed for Shortness of Breath. 18 Gram 10/13/19 25 Active Active Problems Problem Noted Date Diagnosed Date Cubital tunnel syndrome on left 01/30/2023 Overview (01/30/2023): treated by pain mgmt at [facility] and with PT. s/p nerve transposition. 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 Hall, c 40a crew chief. Irritable bowel syndrome with diarrhea 3 Paroxysmal SVT (supraventricular tachycardia) PND (paroxysmal nocturnal dyspnea) 03/01/2020 Enlarged thyroid gland 06/23/2018 Seasonal allergic rhinitis due to pollen 018 Gall bladder disease 12/02/2017 Overview (06/12/2020): Overview: Overview: Neg gall bladder US, positive HIDA scan. Follows with surgeon and GI. Surgery under consideration. Chronic anticoagulation 07/30/2017 History of stroke 07/30/2017 PVC (premature ventricular contraction) 07/30/20 17 CVA (cerebral vascular accident) 06/17/2017 Resolved Problems Problem Noted Date Diagnosed Date Resolved Date Gall bladder disease 12/02/2017 020 Overview (12/02/2017): Neg gall bladder US, positive HIDA scan. Follows with surgeon and GI. Surgery under consideration. 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 [employer] [address] [place] [address] Encounter for issue of repeat prescription (Primary Dx) 10/13/2024 Refill [facility] [employer] [place] [address] [place] [address] Nilda Hdez, LORENA Non-compaction cardiomyopathy (CMS/HCC); Chronic cough 10/04/2024 Refill [facility] at [facility] [employer] [place] [address] [place] [address] Emeli Segundo, ARMANDO Chronic cough; Non-compaction cardiomyopathy (CMS/HCC) 09/13/2024 External Device [employer] [facility] ABSTRACTION Provider, Abstract from Last 3 Months Immunizations Immunization Administration Dates Next Due (ADACEL/BOOSTRIX)(10 YR UP) TDAP VACCINE, 0.5ML, IM 12/07/2017 (INFANRIX)(6 WKS-6 YRS) DIPT HERIA, TETANUS TOXOIDS, AND ACCELLULAR PERTUSSIS VACCINE (DTAP), 0.5 ML IM 03/25/1993,08/20/1992,05/18/1990,1989 (M-M-R II/PRIORIX)(12 MO UP) MEASLES, MUMPS AND RUBELLA VIRUS VACCINE, 0.5 ML IM/SUBCUT 04/07/2002,08/31/1990 (RECOMBIVAX HB/ENGERIX-B)(0- 19 YRS) HEPATITIS B VACCINE 5 MCG/0.5 ML OR 10 MCG/0.5 ML PED OR ADOL 3 DOSE (PF), IM 08/23/2004,10/28/2002,09/13/2002 (TDVAX)(7 YRS UP) TETANUS AN D DIPHTHERIA TOXOIDS, ADSORBED (2 LF OF TETANUS TOXOID AND 2 LF OF DIPHTHERIA TOXOID), 0.5ML (PF), IM 04/07/2002 Poliovirus Vaccine Live Oral 03/25/1993, 08/20/1992,05/18/1990,1989 Family History Medical History Relation Name Comments No Known Problems Brother Hypertension Father Nazario No Known Problems Maternal Grandfather Breast Cancer Maternal Grandmother Linda Colon Cancer Maternal Grandmother Linda SLE Maternal Grandmother Linda Skin Cancer Mother Liza Sleep Disorder Mother Liza No Known Problems Paternal Grandfather No Known Problems Paternal Grandmother Relation Name Status Comments Brother Alive Father Nazario Alive Maternal Grandfather Alive Maternal Grandmother Linda Alive Mother Liza Alive Paternal Grandfather Alive Paternal Grandmother Alive Social History Tobacco Use Types Packs/Day Years Used Date Smoking Tobacco: Never Smokeless Tobacco: Never Tobacco Cessation:Counseling Given: Not Answered Alcohol Use Standard Drinks/Week Comments No 0 (1 standard drink = 0.6 oz pur e alcohol) Comments No Sex and Gender Information Value Date Recorded Sex Assigned at Not on file Legal Sex Female 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 Gender Identity Not on file Sexual Orientation Not on file Last Filed Vital Signs Vital Sign Reading Time Taken Comments Blood Pressure 108/60 02/09/2024 8:57 AM CDT Pulse 52 02/09/2024 8:57 AM CDT Temperature 37.4 C (99.4 F) 02/09/2024 8:57 AM CDT Respiratory Rate 18 02/09/2024 8:57 AM CDT Oxygen Saturation 98% 02/09/2024 8:57 AM CDT Inhaled Oxygen Concentration - - Weight 103.4 kg (228 lb) 02/09/2024 8:57 AM CDT Height 170.2 cm (5' 7 ) 02/09/2024 8:57 AM CDT Body Mass Index 35.71 02/09/2024 8:57 AM CDT Plan of Treatment Upcoming Encounters Date Type Department Care Team (Late st Contact Info) Description 01/16/2025 8:40 AM CDT Office Visit [facility] at [facility] [employer] [address] [place] [address] 01/16/2025 9:00 AM CDT Office Visit [facility] at [facility] [employer] [address] [place] [address] Emeli Segundo, ANP [address] [place] [address] Health Maintenance Due Date Last Done Comments Pre-Diabetes and Diabetes Screening 1989 HPV/Cotest (21-29) 12/07/2022 12/07/2017 HPV/Cotest (30-65) 12/07/2022 12/07/2017 INFLUENZA VACCINE (#1) 2024 CERVICAL CANCER SCREENING 07/17/2024 PAP SMEAR 07/17/2024 07/17/2021 (Prev iously completed), 12/07/2017, 07/17/2016 (Previously completed) DTAP/TDAP/TD VACCINES (7 - Td or Tdap) 12/08/2027 12/07/2017, 04/07/2002, 03/25/1993, Additional history exists HEPATITIS B VACCINES Completed 08/23/2004, 10/28/2002, 09/13/2002 HPV VACCINES Aged Out No longer eligi ble based on patient's age to complete this topic Procedures Procedure Name Priority Date/Time Associated Diagnosis Comments CERV/VAG CYTO SCREEN PAP W/HPV Routine 12/07/2017 12:00 AM CDT from Last 3 Months or Most Recently Relevant to Health Maintenance Results * CERV/VAG CYTOPATH, THIN PREP HOST AND HPV (12/07/2017 12:00 AM CDT) DIAGNOSIS (PAP): Comment [facility] Comment:NEGATIVE FOR INTRAEP ITHELIAL LESION AND MALIGNANCY. ADEQUACY: Comment [facility] Comment: Satisfactory for evaluation. Endocervical and/or squamous metaplastic cells (endocervical component) are present. PERFORMED BY (PAP): Comment [facility] Comment:Madison Ramon, Cyto technologist (ASCP) RESULT (PAP): . [facility] SEE NOTE (PAP): Comment [facility] Comment: The Pap smear is a screening test designed to aid in the detection of premalignant and malignant conditions of the uterine cervix. It is not a diagnostic procedure and should not be used as the sole means of detecting cervical cancer. Both false-positive and false-negative reports do occur. CYTOLOGY COMMISSIONS COORDINATOR METHODOLOGY Comment [facility] Comment: This liquid based ThinPrep(R) pap test was screened with the use of an image guided system. HPV HIGH RISK DETECTION Negative Negative [facility] Comment: This high-risk HPV test detects thirteen high-risk types (16/18/31/33/35/39/45/51/52/56/58/59/68) without differentiation. 12/07/2017 12/07/2017 Narrative [facility] - 12/11/2017 3:37 AM CDT Performed at: - [address] [id number] Public Information Director: Carlota Limon MD, Phone: [phone] Performed at: - [address] [id number] Public Information Director: Carlota Limon MD, Phone: [phone] Specimen Comment: No. of containers..01 ThinPrep Vial us Historical Provider PATHOLOGY/CYTOLOGY ORDERABLE S Final Result [facility] from Last 3 Months or Most Recently Relevant to Health Maintenance Insurance [employer]ESS * Guarantor: [employer] Account Type Relation to Patient Date of Phone Billing Address Corporate Employer ATTN: KALEY FLORIAN [address] [address] Care Teams Stamping Machine Operator Relationship Specialty Start Date End Date Malena Jordan MD PCP - General Family Practice 07/24/22
--- OUTSIDE RECORDS SUMMARY | 2024-12-12 13:51 | XMS_ITS | Continuity of Care Document ---
Author Organization [facility] Address [address] [facility] [address] [place] [address] Phone Care Team Providers Care Dolphin Trainer Name Role Phone Best OD, Rigo Unavailable Unavailable Advance Directives Directive Yes / No Effective Date File Name No Information Encounters Encounter Description Practice Location Reason(s) For Visit Diagnoses Date Provider Providers Copied on Encounter [facility], [address], [place], [place], [id number], [place] tel:[phone] [facility] No Information Oct-0 3-200 6 Best OD Rigo. [address], [place], [address], [place]. tel:[phone] Family History Family Member Type Diagnosis Age At Onset No Information Payers Payer name Insurance type Covered libertarian ID Authoriza tion(s) No Information Social History [...]
--- OUTSIDE RECORDS SUMMARY | 2024-12-12 13:51 | XMS_ITS | Referral Summary ---
Author Organization [facility] [address] Address [address] [place] [address] Care Team Providers Care Railcar Foreman Name Role Phone Charli Rangel MD Unavailable [phone] Malena Jordan MD Primary Care Provider + Encounters Date Type Department Care Team Description 12/03/2024 Orders Only [facility] Cardiology [address] [facility] Medical Office Building [address] [place] [address] Yohan Hall MD 11/17/2024 9:20 AM CDT Office Visit [facility] ([facility]) - [facility] Urology [address] [place] [address] 11th [place] [address] [place] [address] Jose Fernández MD Urinary frequency (Primary Dx); Urine, incontinence, stress female; Urgency of urination 11/14/2024 Telephone [facility] Cardiology [address] [place] [address] 8th [place] [address] [place] [address] Yohan Hall MD 11/01/2024 Telephone [facility] Cardiology [address] [place] [address] 8th [place] [address] [place] [address] Yohan Hall MD 11/01/2024 2:45 PM CDT Ancillary Procedure [facility] Cardiology [address] [place] [address] 8th [place] [address] [place] [phone] Encounter for loop recorder check (Primary Dx); Palpitations 10/07/2024 Orders Only [facility] Cardiology [address] [facility] 8th [place] [address] [place] [phone] Yohan Hall MD Palpitations (Primary Dx) 10/04/2024 Telephone [facility] Cardiology [address] [facility] 8th [place] [address] [place] [phone] Yohan Hall MD 10/03/2024 4:45 PM IT SECURITY ANALYST Office Visit [facility] [place] [address] [place] [address] Kinza Goyal NP Bronchitis (Primary Dx); Acute maxillary sinusitis, recurrence not specified 09/27/2024 Orders Only [facility] Cardiology [address] [facility] Medical Office Building [address] [place] [address] Yohan Hall MD from Last 3 Months Allergies No known active allergies Medications fluticasone (FLONASE) 50 mcg/actuation nasal spray Administer 2 sprays into each nostril as needed for rhinitis 8 Active lisinopril (PRINIVIL,ZESTRI L) 5 mg tabletIndication s:Heart Take 1 tablet (5 mg total) by mouth 2 (two) times a day Active gabapentin (NEURONTIN) 300 mg capsule Take 1 capsule (300 mg total) by mouth 3 (three) times a day 9 Active Lactobacillus acidophilus (Probiotic) 10 billion cell capsuleIndicatio ns:for supplement Take by mouth every morning Active azelastine (ASTELIN) 137 mcg (0.1 %) nasal spray Administer 1 spray into each nostril daily Use in each nostril as directed Active hyoscyamine (OSCIMIN) 0.125 mgIndications:Ur inary Incontinence Take 1 tablet (0.125 mg total) by mouth as needed for cramping Active levonorgestrel (KYLEENA INTRAUTERINE) by intrauterine route Inserted 05/29/2021 Active methocarbamoL (ROBAXIN) 500 mg tabletIndication s:Strain of lumbar region, initial encounter Take 1-2 tablets (500-1,000 mg total) by mouth 4 (four) times a day as needed for muscle spasms 60 tablet 4 Active EPINEPHrine 0.3 mg/0.3 mL auto-injection syringe 4 Active diazePAM (VALIUM) 5 mg tablet Take 1 tablet (5 mg total) by mouth 3 (three) times a day 4 Active benzonatate (TESSALON) 200 mg capsuleIndicatio ns:Bronchitis Take 1 capsule (200 mg total) by mouth 3 (three) times a day as needed for cough 42 capsule 5 Active albuterol HFA (PROVENTIL HFA,VENTOLIN HFA,PROAIR HFA) 90 mcg/actuation inhalerIndicatio ns:Bronchitis Inhale 2 puffs every 4 (four) hours as needed for wheezing or shortness of breath 1 each 5 Active Xarelto 20 mg tablet TAKE 1 TABLET DAILY WITH DINNER 90 tablet 3 5 Active sotaloL (BETAPACE) 80 mg tablet Take 1 tablet (80 mg total) by mouth 2 (two) times a day 180 tablet 5 025 Active Active Problems Problem Noted Date Diagnosed Date Pelvic and perineal pain 12/03/2023 Assessment & Plan (12/03/2023 10:02 AM CDT): The patient presents today for complaints and evaluation of pelvic pain. The patient does not have any uterine tenderness or cervical motion tenderness on exam today. She does have some generalized tenderness in the bilateral lower quadrants. She also has some tenderness in the area of the bladder. I would like to go ahead and proceed with pelvic ultrasound to rule out any uterine or adnexal abnormalities. We discussed the differential diagnosis of endometriosis versus interstitial cystitis. We discussed possible treatment options for endometriosis including Depo Lupron, Orillisa or dx laparoscopy. We also discussed continuing with with a referral to Urology for evaluation of her symptoms. Further plan will be pending pelvic ultrasound results. 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 Maria L/Claire Melo Low TSH level 08/23/2018 Assessment & Plan (08/23/2018 12:36 PM IT SECURITY ANALYST): Discussed the normal pathophysiology of the hypothalamic pituitary thyroid axis. Lab work suggests subclinical hyperthyroidism although I do not see a free T3 level. I have recommended we repeat her levels. She has a normal TPO antibody but will check a thyroid stimulating immunoglobulin as well. We discussed etiology of subclinical hyperthyroidism including Graves disease versus thyroiditis. If labwork again shows only a mild decrease in TSH with normal free T4 and free T3 levels, I told her that this does not necessarily need to be treated. I believe her underlying heart issues are more likely the cause of her her palpitations since these were present prior to her thyroid abnormality. 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 Follows with surgeon and GI. Surgery under consideration. 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 -Sotalol 80 mg BID initiated last night, post EKG showing sinus bradycardia, HR 58, QTc 426ms-stable -Continue sotalol 80mg BID, patient did not get her dose until about 1AM last night, will gradually work on getting her back to a 9AM/9PM schedule -EKGs 2 hours after each dose of sotalol to monitor QTc interval -Continuous uninterrupted telemetry CVA (cerebral vascular accident) ([facility]) 06/17 Assessment & Plan (11/11/2021 11:13 AM CDT): 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 No residual deficits. 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 No residual deficits. -Continue Rivaroxiban Noncompaction cardiomyopathy ([facility]) 4 Overview (11/21/2016): Non-compaction cardiomyopathy Assessment & Plan (11/10/2021 7:22 AM CDT): Preserved cardiac function with some segmental wall motion abnormalities and small apical aneurysm. -Continue PVC management as elsewhere -No indication for GDMT but patient is on lisinopril presumably for hypertension which will be continued here Assessment & Plan (11/09/2021 9:58 AM CDT): Preserved cardiac function with some segmental wall motion abnormalities and small apical aneurysm. -Continue PVC management as elsewhere -No indication for GDMT but patient is on lisinopril presumably for hypertension which will be continued here Resolved Problems Problem Noted Date Diagnosed Date Resolved Date Sinus bradycardia 11/09/2021 11/09/2021 Assessment & Plan (11/09/2021 10:07 AM CDT): Sinus bradycardia, HR 50-60s a PND (paroxysmal nocturnal dyspnea) 03/01/2020 11/08/2021 Tiredness 03/01/2020 11/08/2021 Inappropriate sinus tachycardia 03/01/2020 05/01/2022 Assessment & Plan (11/10/2021 7:24 AM CDT): Prior diagnosis in the setting of racing symptomatic heart beats. Patient is currently in sinus bradycardia and asymptomatic. She states that at home her HR runs between 50-60 bpm -Discontinue Ivabradine due to resting bradycardia Assessment & Plan (11/09/2021 10:16 AM CDT): Prior diagnosis in the setting of racing symptomatic heart beats. Patient is currently in sinus bradycardia and asymptomatic. She states that at home her HR runs between 50-60 bpm -Hold Ivabradine to allow greater flexibility in uptitrating sotalol -If sinus tachycardia episodes recur, will plan to restart Ivabradine (dosage will depend on resting heart rate when on maximally tolerated dose of sotalol) Dizziness 05/12/2019 11/08/2021 PVC's (premature ventricular contractions) 12/09/2018 11/08/2021 Overview (12/09/2018): Added automatically from request for surgery SOB (shortness of breath) 10/13/2018 Acute bronchitis due to othe r specified organisms 12/02/2017 11/08/2021 History of stroke 07/30/2017 11/08/2021 Chest pain 07/30/2017 11/08/2021 Immunizations Immunization Administration Dates Next Due DTaP 03/25/1993,08/20/1992,05/18/1990 ,1989 Hep B, Adolescent or Pediatric 08/23/2004,2002,09/13/2002 MMR 04/07/2002,08/31/1990 OPV 03/25/1993,08/20/1992,05/18/1990 ,1989 Td, adsorbed 04/07/2002 Tdap 12/07/2017 Social History Tobacco Use Types Packs/Day Years Used Date Smoking Tobacco: Never Smokeless Tobacco: Never Tobacco Cessation:Counseling Given: Not Answered Alcohol Use Standard Drinks/Week Comments Yes 0 (1 standard drink = 0.6 oz pur e alcohol) rarely AUDIT-C Answer Date Recorded Q1: How often do you have a drink containing alc ohol? 2-4 times a month 12/03/2023 Q2: How many drinks containi ng alcohol do you have on a typical day when you are drinking? 1 or 2 12/03/2023 Q3: How often do you have si x or more drinks on one occasion? 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 on file Not on file N ot on file Last Filed Vital Signs Vital Sign Reading Time Taken Comments Blood Pressure 109/73 11/01/2024 2:50 PM CDT Pulse 53 11/01/2024 2:50 PM CDT Temperature 36.6 C (97.8 F) 10/03/2024 4:39 PM IT SECURITY ANALYST Respiratory Rate 18 10/03/2024 4:39 PM IT SECURITY ANALYST Oxygen Saturation 96% 11/01/2024 2:50 PM CDT Inhaled Oxygen Concentration - - Weight 99.9 kg (220 lb 3.2 oz) 11/01/2024 2:50 P M CDT Height 170.2 cm (5' 7 ) 11/01/2024 2:50 PM CDT Body Mass Index 34.49 11/01/2024 2:50 PM CDT Plan of Treatment Not on file Medical Devices Implanted Type Area Livestock Yard Supervisor Device Identifier Shelf Expiration Date Model / Serial / Lot [employer] [id number] Device Closure Vascade Od5 Fr Femoral Artery - [id number] - [id number] Implanted:Qty: 1 on 07/19/2020 by Charli Rangel MD at [facility] Collagen [employer] 05/01/2022 700-500DX -05U / [id number] / [id number] Medtronic Cardiac Rhythm Mgmt Linqsys Reveal Linq Mycarelink Insertable Loop Recorder Automatic - [id number] - [id number] Implanted:Qty: 1 on 12/23/2018 by Charli Rangel MD at [facility] Implantable Loop Recorder N/A: Chest Wall Medtronic Cardiac Rhythm Mgmt [id number] 10/14/2019 LINQSYS / [id number] / D Medtronic Inc Reveal Linq Ii Implantable Kardex Clerk Lnq22 - [id number] - [id number] Implanted:Qty: 1 on 07/25/2022 by Yohan Hall MD at [facility] Implantable Loop Recorder Left: Chest Medtronic Inc 12/03/2023 LNQ22 / [id number] / [employer] [id number] Device Closure Vascade Od5 Fr Femoral Artery - [id number] - [id number] Implanted:Qty: 1 on 07/19/2020 by Charli Rangel MD at [facility] Clinical [employer] Inc 05/01/2022 700-500DX -05U / [id number] / [id number] [employer] [id number] Device Closure Vascade Od5 Fr Femoral Artery - [id number] - [id number] Implanted:Qty: 1 on 07/19/2020 by Charli Rangel MD at [facility] [employer] 05/01/2022 700-500DX -05U / [id number] / [id number] [employer] [id number] System 6-12fr Mvp Venous Closure Vascade - [id number] - [id number] Implanted:Qty: 1 on 07/19/2020 by Charli Rangel MD at [facility] [employer] 06/03/2022 [id number] [id number] / [id number] / [id number] [employer] [id number] Device Closure Vascade Od5 Fr Femoral Artery - [id number] - [id number] Implanted:Qty: 1 on 07/19/2020 by Charli Rangel MD at [facility] [employer] 05/01/2022 700-500DX -05U / [id number] / [id number] Procedures Procedure Name Priority Date/Time Associated Diagnosis Comments DEVICE CHECK - REMOTE Routine 12/03/2024 4:12 AM CDT POCT URINALYSIS DIPSTICK Routine 11/17/2024 9:27 AM CDT Urine, incontinence, stress female Urinary frequency Urgency of urination DEVICE CHECK - IN OFFICE Routine 11/01/2024 2:43 PM CDT Palpitations DEVICE CHECK - REMOTE Routine 10/04/2024 2:12 AM IT SECURITY ANALYST PAP AND HPV, REFLEX TO HPV GENOTYPES Routine 12/03/2023 10:03 AM CDT Well woman exam from Last 3 Months or Most Recently Relevant to Health Maintenance Results * DEVICE CHECK - REMOTE (12/03/2024 4:12 AM CDT) Anatomical Region Laterality Modality Other 12/03/2024 4:12 AM CDT Narrative 12/06/2024 4:25 PM CDT Interpretation Summary: Battery and Leads (BL) Normal battery parameters Presenting Rhythm (DC) Normal Sinus Rhythm Arrhythmic events (AE) No new arrhythmic events in monitoring period Anticoagulation (AC) Patient prescribed Rivaroxaban (Xarelto) Patient on anticoagulant therapy Transmission Information (TI) Implant indication: Palpitations Device Summary Report Follow Up (FU) Patient's primary treating physician will be apprised of findings Procedure Note Yohan Hall MD - 12/06/2024 Interpretation Summary: Battery and Leads (BL) Normal battery parameters Presenting Rhythm (DC) Normal Sinus Rhythm Arrhythmic events (AE) No new arrhythmic events in monitoring period Anticoagulation (AC) Patient prescribed Rivaroxaban (Xarelto) Patient on anticoagulant therapy Transmission Information (TI) Implant indication: Palpitations Device Summary Report Follow Up (FU) Patient's primary treating physician will be apprised of findings Yohan Hall MD [facility] PRO CEDURES Final Result * POCT urinalysis dipstick (11/17/2024 9:27 AM CDT) Glucose, ur, POC Negative Negative MG/DL Ketones, ur, POC Negative Negative Blood, ur, POC Negative Negative pH, ur, POC 8.0 5.0 - 8.0 Protein, ur, POC Negative Negative Nitrite, ur, POC Negative Negative Leukocytes, ur, POC Negative Negative Lot Number x Urine 11/17/2024 9:27 AM CDT Jose Fernández MD POINT OF CARE TEST ORDERABLES Final Result * DEVICE CHECK - IN OFFICE (11/01/2024 2:43 PM CDT) Anatomical Region Laterality Modality Other 11/01/2024 2:00 AM CDT Narrative 11/21/2024 10:01 AM CDT Interpretation Summary: Anticoagulation (AC) Patient on anticoagulant therapy Patient prescribed Rivaroxaban (Xarelto) Procedure Note Jeronimo Ernandez MD PhD - 11/21/2024 Interpretation Summary: Anticoagulation (AC) Patient on anticoagulant therapy Patient prescribed Rivaroxaban (Xarelto) Yohan Hall MD [facility] PRO CEDURES Final Result * DEVICE CHECK - REMOTE (10/04/2024 2:12 AM IT SECURITY ANALYST) Anatomical Region Laterality Modality Other 10/04/2024 2:12 AM IT SECURITY ANALYST Narrative 10/03/2024 11:17 AM IT SECURITY ANALYST Interpretation Summary: Battery and Leads (BL) Normal battery parameters Presenting Rhythm (DC) Normal Sinus Rhythm Arrhythmic events (AE) False Pause event(s) recorded due to undersensing Anticoagulation (AC) Patient on anticoagulant therapy Patient prescribed Rivaroxaban (Xarelto) Follow Up (FU) Patient's primary treating physician will be apprised of findings Procedure Note Yohan Hall MD - 10/10/2024 Interpretation Summary: Battery and Leads (BL) Normal battery parameters Presenting Rhythm (DC) Normal Sinus Rhythm Arrhythmic events (AE) False Pause event(s) recorded due to undersensing Anticoagulation (AC) Patient on anticoagulant therapy Patient prescribed Rivaroxaban (Xarelto) Follow Up (FU) Patient's primary treating physician will be apprised of findings Yohan Hall MD [facility] PRO CEDURES Edited Result - Final * Pap and HPV, reflex to HPV Genotypes (12/03/2023 10:03 AM CDT) CLINICAL INFORMATION: [facility] Comment:SCREENING LMP [facility] Comment:IUD Previous Pap [facility] Comment:NONE GIVEN Prev. Bx [facility] Comment:NONE GIVEN SOURCE: [facility] Comment:Cervix, Endocervix Pap, specimen adequacy [facility] Comment: Satisfactory for evaluation. Endocervical/transformation zone component present. HPV interp [facility] Comment: Cytology Results: Negative for intraepithelial lesion or malignancy. COMMENTS [facility] Comment: This Pap test has been evaluated with computer assisted technology. Well Service Floor Worker [facility] Comment: CAK, CT(ASCP) CT Screening Location: [place] [address] , [place] [address] [facility] Comment: EXPLANATORY NOTE: The Pap is a screening test for cervical cancer. It is not a diagnostic test and is subject to false negative and false positive results. It is most reliable when a satisfactory sample, regularly obtained, is submitted with relevant clinical findings and history, and when the Pap result is evaluated along with historic and current clinical information. Human papillomavirus DNA, High Risk E6/E7 Not Detected NOT DETECTED [employer] [facility] Comment: Not Detected High Risk HPV types (16,18,31,33,35,39,45,51,52, 56,58,59,66,68) were not detected. Other HPV types which cause anogenital lesions may be present. The significance of the other types of HPV in malignant processes has not been established. Methodology: Real Time PCR Thin prep 12/03/2023 10:0 3 AM CDT 12/04/2023 11:35 AM CDT us Maya Fischer NP LAB CYTOLOGY ORDERABLES Final Re [facility] [address] [place] [phone] [facility]/[place] [address] [facility] [place] [address] from Last 3 Months or Most Recently Relevant to Health Maintenance Insurance [facility] [employer] OPEN [facility]ESS [id number] [address] [place], [place] [id number] [place], [place] [address]GIANCE Advance Directives For more information, please contact: [phone] Documents on File Type Date Recorded Patient Vocational Psychologist Expl anation ADVANCE DIRECTIVE 12/12/2021 6:42 AM Power of Web Content Producer-Medical * Full Code (Latest Code Status on File) Date Activated Date Inactivated Comments 11/08/2021 6:36 PM 11/12/2021 8:31 PM * Full Code Date Activated Date Inactivated Comments 10/07/2018 8:32 PM 10/08/2018 4:36 PM Care Teams Railcar Foreman Relationship Specialty Start Date End Date Malena Jordan MD PCP - General Family Medicine 07/15/22 Charli Rangel MD Consulting Physician Cardiology 07/19/20
--- OUTSIDE RECORDS SUMMARY | 2024-12-12 13:51 | XMS_ITS | Clinical Summary ---
Author Organization [facility] [place] [address] Address [address] [place] [address] Care Team Providers Care Business Excellence Leader Name Role Phone Charli Rangel MD Unavailable [phone] Malena Jordan MD Primary Care Provider + Allergies No known active allergies Medications fluticasone [...] (11/20/2021): Added automatically from request for surgery [id number] Palpitations 12/21/2020 Status post placement of implantable loop record er 12/23/2018 Overview (12/23/2018): Medtronic LINQ ILR implanted on 12/23/18 for PVC's; s/p PVC ablation. 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 No residual deficits. 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 No residual deficits. 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 Assessment & [...] stroke 07/30/2017 11/08/2021 Chest pain 07/30/2017 11/08/2021 Encounters Date Type Department Care Team Description 12/03/2024 Orders Only [facility] Cardiology [facility] Medical Office Building [address] [place] [address] Yohan Hall MD 11/17/2024 9:20 AM CDT Office Visit [facility] Urology [address] [place] [address] 11th [place] [address] [place] [address] Jose Fernández MD Urinary frequency (Primary Dx); Urine, incontinence, stress female; Urgency of urination 11/14/2024 Telephone [facility] Cardiology [address] [place] [address] 8th [place] [address] [place] [address] Yohan Hall MD 11/01/2024 2:45 PM CDT Ancillary Procedure [facility] Cardiology [address] [place] [address] 8th [place] [address] [place] [phone] Encounter for loop recorder check (Primary Dx); Palpitations 11/01/2024 Telephone [facility] Cardiology [address] [facility] 8th [place] [address] [place] [phone] Yohan Hall MD 10/07/2024 Orders Only [facility] Cardiology [address] [facility] 8th [place] [address] [place] [address] Yohan Hall MD Palpitations (Primary Dx) 10/04/2024 Telephone [facility] Cardiology [address] [facility] 8th [place] [address] [place] [phone] Yohan Hall MD 10/03/2024 4:45 PM INTERACTIVE MEDIA DESIGNER Office [facility] [address] [place] [address] Kinza Goyal, LEXY Bronchitis (Primary Dx); Acute maxillary sinusitis, recurrence not specified 09/27/2024 Orders Only [facility] Cardiology [address] [facility] Medical Office Building [address] [place] [address] Yohan Hall MD from Last 3 Months Immunizations Immunization Administration Dates Next Due DTaP 03/25/1993,08/20/1992,05/18/1990 ,1989 Hep B, Adolescent or Pediatric 08/23/2004,2002,09/13/2002 MMR 04/07/2002,08/31/1990 OPV 03/25/1993,08/20/1992,05/18/1990 ,1989 Td, adsorbed 04/07/2002 Tdap 12/07/2017 Surgical History Surgery Date Site/Laterality Comments EXPLORATORY LAPAROTOMY 09/17/2016 - 10/14/2016 ovarian cyst removed COLONOSCOPY 12/15/2017 - 01/14/2018 UPPER GASTROINTESTINAL ENDOSCOPY 12/15/2017 - 01/14/2018 CARDIAC ELECTROPHYSIOLOGY MAPPING AND ABLATION 2019 ablation for pvc's CARDIAC ELECTROPHYSIOLOGY PROCEDURE 08/17/2012 - 08/16/2013 loop recorder implanted SINUS SURGERY 11/22/2021 CARDIAC ELECTROPHYSIOLOGY PROCEDURE 2013,2018,2019 studies Medical History Medical History Date Comments PVC (premature ventricular contraction) Anemia Gallbladder pain unknown cause f or abdominal pain Arrhythmia Non-compaction cardiomyopathy (HCC) Stroke (HCC) 2010 occasional weakn ess in right leg x3 History of loop recorder implant ed 2013 explanted 2015 PONV (postoperative nausea and vomiting) nausea only x1 Family History Medical History Relation Name Comments Hypertension Father John Mack Diabetes Maternal Grandfather Prasanna Jaquez Hypertension Maternal Grandfather Prasanna Jaquez Breast cancer Maternal Grandmother Linda Jaquez Colon cancer Maternal Grandmother Linda Jaquez Endometrial cancer Maternal Grandmother Linda Carey Tur ner Lupus Maternal Grandmother Linda Jaquez Skin cancer Maternal Grandmother Linda Jaquez hnpcc Maternal Grandmother Linda Jaquez Hypertension Mother Linda Mack Skin cancer Mother Linda Mack hnpcc Mother Linda Mack Brain cancer Mother's Brother Serjio Jaquez Anesthesia problems Neg Hx Relation Name Status Comments Father John Mack Alive Maternal Grandfather Prasanna Jaquez type 2 Maternal Grandmother Linda Jaquez Mother Linda Mack Alive Mother's Brother Serjio Jaquez Social History Tobacco Use Types Packs/Day Years [...] on file Legal Sex Female 7:13 PM INTERACTIVE MEDIA DESIGNER Gender Identity Female 08/28/2020 1:39 PM INTERACTIVE MEDIA DESIGNER Sexual Orientation Straight 02/23/2020 3: 38 PM CDT 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 Not on file Not on file N ot on file Obstetrics History Para Term AB IAB SAB Ectopic Multiple Livin g Live Births 0 0 0 0 0 0 0 0 0 0 0 Last Filed Vital Signs Vital Sign Reading Time Taken Comments Blood Pressure 109/73 11/01/2024 2:50 PM CDT Pulse 53 11/01/2024 2:50 PM CDT Temperature 36.6 C (97.8 F) 10/03/2024 4:39 PM INTERACTIVE MEDIA DESIGNER Respiratory Rate 18 10/03/2024 4:39 PM INTERACTIVE MEDIA DESIGNER Oxygen Saturation 96% 11/01/2024 2:50 PM CDT Inhaled Oxygen Concentration - - Weight 99.9 kg (220 lb 3.2 oz) 11/01/2024 2:50 P M CDT Height 170.2 cm (5' 7 ) 11/01/2024 2:50 PM CDT Body Mass Index 34.49 11/01/2024 2:50 PM CDT Plan of Treatment Health Maintenance Due Date Last Done Comments Hepatitis C Screening 1989 Varicella Vaccines (1 of 2 - 13+ 2-dose series) 2002 Cervical Cancer Screening 12/02/2024 12/03/2023 Depression Screening 12/02/2024 12/03/2023 Regular Well Visit/Exam 18-64 12/02/2024 12/03/2023 Influenza Vaccine (Season Ended) 2025 DTaP/Tdap/Td Vaccine (6 - Td or Tdap) 12/08/2027 12/07/2017, 04/07/2002, 03/25/1993, Additional history exists Hepatitis B Screening Completed 08/23/2004 , 10/28/2002, 09/13/2002 HPV Vaccines Aged Out No longer eligi ble based on patient's age to complete this topic Pneumococcal vaccine <65 Aged Out No longer eligible based on patient's age to complete this topic Medical Devices Implanted Type Area Airline Flight Attendant Device Identifier Shelf Expiration Date Model / Serial / Lot [employer] [id number] Device Closure Vascade Od5 Fr Femoral Artery - [id number] - [id number] Implanted:Qty: 1 on 07/19/2020 by Charli Rangel MD at [facility] [employer] 05/01/2022 700-500DX -[id number] / [id number] / [id number] Medtronic Cardiac Rhythm Mgmt Linqsys Reveal Linq Mycarelink Insertable Loop Recorder Automatic - [id number] - [id number] Implanted:Qty: 1 on 12/23/2018 by Charli Rangel MD at [facility] Implantable Loop Recorder N/A: Chest Wall Medtronic Cardiac Rhythm Mgmt [id number] 10/14/2019 LINQSYS / [id number] / D Medtronic Inc Reveal Linq Ii Implantable Livestock Exhibitor Lnq22 - [id number] - [id number] Implanted:Qty: 1 on 07/25/2022 by Yohan Hall MD at [facility] Implantable Loop Recorder Left: Chest Medtronic Inc 12/03/2023 LNQ22 / [id number] / [employer] [id number] Device Closure Vascade Od5 Fr Femoral Artery - [id number] - [id number] Implanted:Qty: 1 on 07/19/2020 by Charli Rangel MD at [facility] [employer] 05/01/2022 700-500DX -05U / [id number] / [id number] [employer] [id number] Device Closure Vascade Od5 Fr Femoral Artery - [id number] - [id number] Implanted:Qty: 1 on 07/19/2020 by Charli Rangel MD at [facility] [employer] 05/01/2022 700-500DX -05U / [id number] / [id number] [employer] [id number] System 6-12fr Mvp Venous Closure Vascade - [id number] - [id number] Implanted:Qty: 1 on 07/19/2020 by Charli Rangel MD at [facility] [employer] 06/03/2022 [id number] [id number] / [id number] / [id number] [employer] [id number] Device Closure Vascade Od5 Fr Femoral Artery - [id number] - [id number] Implanted:Qty: 1 on 07/19/2020 by Charli Rangel MD at [facility] [employer] [facility] 05/01/2022 700-500DX -05U / [id number] / [id number] Procedures Procedure Name Priority Date/Time Associated Diagnosis Comments DEVICE CHECK - REMOTE Routine 12/03/2024 4:12 AM CDT POCT URINALYSIS DIPSTICK Routine 11/17/2024 9:27 AM CDT Urine, incontinence, stress female Urinary frequency Urgency of urination DEVICE CHECK - IN OFFICE Routine 11/01/2024 2:43 PM CDT Palpitations DEVICE CHECK - REMOTE Routine 10/04/2024 2:12 AM INTERACTIVE MEDIA DESIGNER PAP AND HPV, REFLEX TO HPV GENOTYPES Routine 12/03/2023 10:03 AM CDT Well woman exam from Last 3 Months or Most Recently Relevant to Health Maintenance Results * DEVICE CHECK - REMOTE (12/03/2024 4:12 AM CDT) Anatomical Region Laterality Modality Other 12/03/2024 4:12 AM CDT Narrative 12/06/2024 4:25 PM CDT Interpretation Summary: Battery and Leads (BL) Normal battery parameters Presenting Rhythm (WV) Normal Sinus Rhythm Arrhythmic events (AE) No new arrhythmic events in monitoring period Anticoagulation (AC) Patient prescribed Rivaroxaban (Xarelto) Patient on anticoagulant therapy Transmission Information (TI) Implant indication: Palpitations Device Summary Report Follow Up (FU) Patient's primary treating physician will be apprised of findings Procedure Note Yohan Hall MD - 12/06/2024 Interpretation Summary: Battery and Leads (BL) Normal battery parameters Presenting Rhythm (WV) Normal Sinus Rhythm Arrhythmic events (AE) No [...] DEVICE CHECK - REMOTE (10/04/2024 2:12 AM INTERACTIVE MEDIA DESIGNER) Anatomical Region Laterality Modality Other 10/04/2024 2:12 AM INTERACTIVE MEDIA DESIGNER Narrative 10/03/2024 11:17 AM INTERACTIVE MEDIA DESIGNER Interpretation Summary: Battery and Leads (BL) Normal battery parameters Presenting Rhythm (WV) Normal Sinus Rhythm Arrhythmic events (AE) False Pause event(s) recorded due to undersensing Anticoagulation (AC) Patient on anticoagulant therapy Patient prescribed Rivaroxaban (Xarelto) Follow Up (FU) Patient's primary treating physician will be apprised of findings Procedure Note Yohan Hall MD - 10/10/2024 Interpretation Summary: Battery and Leads (BL) Normal battery parameters Presenting Rhythm (WV) Normal Sinus Rhythm Arrhythmic events (AE) False Pause event(s) recorded due to undersensing Anticoagulation (AC) Patient on anticoagulant therapy Patient prescribed Rivaroxaban (Xarelto) Follow Up (FU) Patient's primary treating physician will be apprised of findings Yohan Hall MD [facility] PRO CEDURES Edited Result - Final * Pap and HPV, reflex to HPV Genotypes (12/03/2023 10:03 AM CDT) CLINICAL INFORMATION: [facility] Comment:SCREENING LMP [facility] Comment:IUD Previous Pap [facility] Comment:NONE GIVEN Prev. Bx [facility] Comment:NONE GIVEN SOURCE: [facility] Comment:Cervix, Endocervix Pap, specimen adequacy [facility] Comment: Satisfactory for evaluation. Endocervical/transformation zone component present. HPV interp [facility] Comment: Cytology Results: Negative for intraepithelial lesion or malignancy. COMMENTS [facility] Comment: This Pap test has been evaluated with computer assisted technology. Insurance Healthcare Consultant [facility] Comment: CAK, CT(ASCP) CT Screening Location: [place] [address] , [place] [address] Comment [facility] Comment: EXPLANATORY NOTE: The Pap is [...] High Risk E6/E7 Not Detected NOT DETECTED [employer] [facility]William JIM Comment: Not Detected High Risk HPV types (16,18,31,33,35,39,45,51,52, 56,58,59,66,68) were not detected. Other HPV types which cause anogenital lesions may be present. The significance of the other types of HPV in malignant processes has not been established. Methodology: Real Time PCR Thin prep 12/03/2023 10:0 3 AM CDT 12/04/2023 11:35 AM CDT us Maya Fischer NP LAB CYTOLOGY ORDERABLES Final Re [facility]ult [facility] [address] [place] [address] [employer]/[place] [address] [place] [address] from Last 3 Months or Most Recently Relevant to Health Maintenance Insurance [facility] OPEN ACCESS [facility] JERRY ALLEGIANCE Advance Directives For more information, please contact: [phone] Documents on File Type Date Recorded Patient Insurance Examiner Expl anation ADVANCE DIRECTIVE 12/12/2021 6:42 AM Dejuan r of Multimedia Producer-Medical * Full Code (Latest Code Status on File) Date Activated Date Inactivated Comments 11/08/2021 6:36 PM 11/12/2021 8:31 PM * Full Code Date Activated Date Inactivated Comments 10/07/2018 8:32 PM 10/08/2018 4:36 PM Care Teams Business Excellence Leader Relationship Specialty Start Date End Date Malena Jordan MD PCP - General Family Medicine 07/15/22 Charli Rangel MD Consulting Physician Cardiology 07/19/20
== END 2024-12-12 12:00 | disposition home or self-care (01) ==
LOC: ANHBWCLAB 12:01
PROVIDERS: PCP Family Medicine; Visit Provider Physical Medicine & Rehabilitation Pain Medicine
DX: M16.9 Osteoarthritis of hip, unspecified (principal)
CPT/HCPCS: 36415; 73502

== ENCOUNTER 2025-01-02 12:21 | Outpatient (CLI) | payer OTHER, SELFPAY ==
--- NOTE | ~2025-01-02 | XR_ITS ---
EXAM: XR ankle LT min 3V DATE: 01/02/2025 12:33 HISTORY: M25.572 - Pain in left ankle and joints of left foot . COMPARISON: 07/29/2021. FINDINGS: Normal mineralization. No fracture or dislocation. No lytic or blastic lesion. Joint space s are maintained. Mild enthesopathy over the dorsal aspect of the navicular. No erosion or periosteal change. Soft tissues within normal limits. IMPRESSION: No acute osseous finding in the left ankle. Reviewed, dictated and finalized at location K.
--- OUTSIDE RECORDS SUMMARY | 2025-01-02 12:25 | XMS_ITS | Referral Summary ---
Author Organization [facility] [address] Address [address] [place] [address] Care Team Providers Care Space Controller Name Role Phone Charli Rangel MD Unavailable [phone] Malena Jordan MD Primary Care Provider + Encounters Date Type Department Care Team Description 12/28/[address] [facility] Medical Group Imaging at [address] [phone] No, Physician 12/27/2024 Results Follow-Up [facility] at [place] [address] [place] [phone] Kinza Goyal NP XR Ankle Right 3+ Vw 12/27/2024 11:15 AM CDT Anc[address] Procedure [facility] Medical Group Imaging at [address] [phone] Injury of right foot, initial encounter 12/27/2024 11:00 AM CDT Ancillary Procedure [facility] Medical [facility] Imaging at [address] [phone] Injury of right foot, initial encounter 12/27/2024 8:00 AM CDT Office Visit [facility] at [place] [address] [place] [address] Kinza Goyal NP Injury of right foot, initial encounter (Primary Dx); Abrasion of left lower extremity, initial encounter 12/03/2024 Orders Only [facility] Cardiology [address] [facility] Medical Office Building [address] [place] [address] Yohan Hall MD 11/17/2024 9:20 AM CDT Office Visit [facility] Urology [address] [facility] 11th [place] [address] [place] [address] Jose Fernández MD Urinary frequency (Primary Dx); Urine, incontinence, stress female; Urgency of urination 11/14/[address]th [place] [address] [place] [address] Yohan Hall MD 11/01/[address] [place] [address] [place] [address] Yohan Hall MD 11/01/2024 2:45 PM CDT Ancillary Procedure [facility] Cardiology [address] [place] [address] 8th [place] [address] [place] [address] Encounter for loop recorder check (Primary Dx); Palpitations 10/07/2024 Orders Only [address]th [place] [address] [place] [address] Yohan Hall MD Palpitations (Primary Dx) from Last 3 Months Allergies No known [...] (11/20/2021): Added automatically from request for surgery [id number] Palpitations 12/21/2020 Status post placement of implantable loop record er 12/23/2018 Overview (12/23/2018): Medtronic LINQ ILR implanted on 12/23/18 for PVC's; s/p PVC ablation. 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 No residual deficits. 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 No residual deficits. 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 on file Not on file N ot on file Last Filed Vital Signs Vital Sign Reading Time Taken Comments Blood Pressure 116/68 12/27/2024 8:06 AM CDT Pulse 54 12/27/2024 8:06 AM CDT Temperature 36.7 C (98 F) 12/27/2024 8:06 AM CDT Respiratory Rate 20 12/27/2024 8:06 AM CDT Oxygen Saturation 99% 12/27/2024 8:06 AM CDT Inhaled Oxygen Concentration - - Weight 101.2 kg (223 lb) 12/27/2024 8:06 AM CDT Height 170.2 cm (5' 7 ) 12/27/2024 8:06 AM CDT Body Mass Index 34.93 12/27/2024 8:06 AM CDT Plan of Treatment Not on file Medical Devices Implanted Type Area Geothermal Operations Engineer Device Identifier Shelf Expiration Date Model / Serial / Lot [employer] [id number] Device Closure Vascade Od5 Fr Femoral Artery - [id number] - [id number] Implanted:Qty: 1 on 07/19/2020 by Charli Rangel MD at [facility] [employer] 05/01/2022 700-500DX -05U / [id number] / [id number] Medtronic Cardiac Rhythm Mgmt Linqsys Reveal Linq Mycarelink Insertable Loop Recorder Automatic - [id number] - [id number] Implanted:Qty: 1 on 12/23/2018 by Charli Rangel MD at [facility] Implantable Loop Recorder N/A: Chest Wall Medtronic Cardiac Rhythm Mgmt [id number] 10/14/2019 LINQSYS / [id number] S / D Medtronic Inc Reveal Linq Ii Implantable Engineering Agent Lnq22 - [id number] - [id number] Implanted:Qty: 1 on 07/25/2022 by Yohan Hall MD at [facility] Implantable Loop Recorder Left: Chest Medtronic Inc 12/03/2023 LNQ22 / [id number] / [employer] [id number] Device Closure Vascade Od5 Fr Femoral Artery - [id number] - [id number] Implanted:Qty: 1 on 07/19/2020 by Charli Rangel MD at [facility] [employer] 05/01/2022 700-500DX -05U / [id number] / [id number] [employer] [id number] Device Closure Vascade Od5 Fr Femoral Artery - [id number] - [id number] Implanted:Qty: 1 on 07/19/2020 by Charli Rangel MD at [facility] [employer] 05/01/2022 700-500DX -05U / [id number] / [id number] [employer] [id number] System 6-12fr Mvp Venous Closure Vascade - [id number] - [id number] Implanted:Qty: 1 on 07/19/2020 by Charli Rangel MD at [facility] [employer] 06/03/2022 [id number] [id number] / [id number] / [id number] [employer] [id number] Device Closure Vascade Od5 Fr Femoral Artery - [id number] - [id number] Implanted:Qty: 1 on 07/19/2020 by Charli Rangel MD at [facility] [employer] 05/01/2022 700-500DX -05U / [id number] / [id number] Procedures Procedure Name Priority Date/Time Associated Diagnosis Comments XR ANKLE RIGHT 3 OR MORE VIEWS Schedule PETER, Read PETER (Appt Today, Awaiting Results) 12/27/2024 10:54 AM CDT Injury of right foot, initial encounter XR FOOT RIGHT 3 OR MORE VIEWS Schedule PETER, Read PETER (Appt Today, Awaiting Results) 12/27/2024 10:54 AM CDT Injury of right foot, initial encounter DEVICE CHECK - REMOTE Routine 12/03/2024 4:12 AM CDT POCT URINALYSIS DIPSTICK Routine 11/17/2024 9:27 AM CDT Urine, incontinence, stress female Urinary frequency Urgency of urination DEVICE CHECK - IN OFFICE Routine 11/01/2024 2:43 PM CDT Palpitations PAP AND HPV, REFLEX TO HPV GENOTYPES Routine 12/03/2023 10:03 AM CDT Well woman exam from Last 3 Months or Most Recently Relevant to Health Maintenance Results * XR Ankle Right 3+ Vw (12/27/2024 10:54 AM CDT) Anatomical Region Laterality Modality Lower Extremities, Ankle Right Digital Radiography 12/27/2024 7:40 PM CDT Narrative 12/27/2024 7:42 PM CDT EXAM DESCRIPTION: XR FOOT RIGHT 3 OR MORE VIEWS; XR ANKLE RIGHT 3 OR MORE VIEWS REASON FOR STUDY: fell yesterday and twisted ankle. Ecchymosis to lateral aspect of right foot. Rule out fracture. Difficulty bearing weight. Rolled ankle while carrying heavy box of books yesterday. Most pain to lateral foot and ankle. FINDINGS: Three views right foot and three views right ankle submitted without comparison. Ankle joint space and mortise are normal. No evidence of an effusion. The joint spaces are normal. IMPRESSION: No acute fracture. If persistent clinical concern for an occult fracture, conservative management with repeat radiographs in 2-3 weeks or further evaluation with MRI may be considered. THIS IS AN ELECTRONICALLY VERIFIED FINAL REPORT 12/27/2024 7:42 PM - Electronically signed by John lAmanzar M.D. T: Report ID: [id number] Reading Location: [id number] Procedure Note John Almanzar MD - 12/27/2024 EXAM DESCRIPTION: XR FOOT RIGHT 3 OR MORE VIEWS; XR ANKLE RIGHT 3 OR MORE VIEWS REASON FOR STUDY: fell yesterday and twisted ankle. Ecchymosis to lateral aspect of right foot. Rule out fracture. Difficulty bearing weight. Rolled ankle while carrying heavy box of books yesterday. Most pain tolateral foot and ankle. FINDINGS: Three views right foot and three views right ankle submittedwithout comparison. Ankle joint space and mortise are normal. No evidence of an effusion.The joint spaces are normal. IMPRESSION: No acute fracture. If persistent clinical concern for an occult fracture, conservative management with repeat radiographs in 2-3 weeks or further evaluation with MRI may be considered. THIS IS AN ELECTRONICALLY VERIFIED FINAL REPORT 12/27/2024 7:42 PM - Electronically signed by John Almanazr M.D. T: Report ID: [id number] Reading Location: [id number] Kinza Goyal NP IM XR PROCEDURES Final Result * XR Foot Right 3+ Vw (12/27/2024 10:54 AM CDT) Anatomical Region Laterality Modality Lower Extremities, Foot Right Digital Radiography 12/27/2024 7:40 PM CDT Narrative 12/27/2024 7:42 PM CDT EXAM DESCRIPTION: XR FOOT RIGHT 3 OR MORE VIEWS; XR ANKLE RIGHT 3 OR MORE VIEWS REASON FOR STUDY: fell yesterday and twisted ankle. Ecchymosis to lateral aspect of right foot. Rule out fracture. Difficulty bearing weight. Rolled ankle while carrying heavy box of books yesterday. Most pain to lateral foot and ankle. FINDINGS: Three views right foot and three views right ankle submitted without comparison. Ankle joint space and mortise are normal. No evidence of an effusion. The joint spaces are normal. IMPRESSION: No acute fracture. If persistent clinical concern for an occult fracture, conservative management with repeat radiographs in 2-3 weeks or further evaluation with MRI may be considered. THIS IS AN ELECTRONICALLY VERIFIED FINAL REPORT 12/27/2024 7:42 PM - Electronically signed by John Almanzar M.D. T: Report ID: [id number] Reading Location: [id number] Procedure Note John Almanzar MD - 12/27/2024 EXAM DESCRIPTION: XR FOOT RIGHT 3 OR MORE VIEWS; XR ANKLE RIGHT 3 OR MORE VIEWS REASON FOR STUDY: fell yesterday and twisted ankle. Ecchymosis to lateral aspect of right foot. Rule out fracture. Difficulty bearing weight. Rolled ankle while carrying heavy box of books yesterday. Most pain tolateral foot and ankle. FINDINGS: Three views right foot and three views right ankle submittedwithout comparison. Ankle joint space and mortise are normal. No evidence of an effusion.The joint spaces are normal. IMPRESSION: No acute fracture. If persistent clinical concern for an occult fracture, conservative management with repeat radiographs in 2-3 weeks or further evaluation with MRI may be considered. THIS IS AN ELECTRONICALLY VERIFIED FINAL REPORT 12/27/2024 7:42 PM - Electronically signed by John Almanzar M.D. T: Report ID: [id number] Reading Location: [id number] Kinza Goyal NP IMG XR PROCEDURES Final Result * DEVICE CHECK - REMOTE (12/03/2024 4:12 AM CDT) Anatomical Region Laterality Modality Other 12/03/2024 4:12 AM CDT Narrative 12/06/2024 4:25 PM CDT Interpretation Summary: Battery and Leads (BL) Normal battery parameters Presenting Rhythm (PA) Normal Sinus Rhythm Arrhythmic events (AE) No new arrhythmic events in monitoring period Anticoagulation (AC) Patient prescribed Rivaroxaban (Xarelto) Patient on anticoagulant therapy Transmission Information (TI) Implant indication: Palpitations Device Summary Report Follow Up (FU) Patient's primary treating physician will be apprised of findings Procedure Note Yohan Hall MD - 12/06/2024 Interpretation Summary: Battery and Leads (BL) Normal battery parameters Presenting Rhythm (PA) Normal Sinus Rhythm Arrhythmic events (AE) No [...] CARDIAC SERVICES PRO CEDURES Final Result * Pap and HPV, reflex to HPV Genotypes (12/03/2023 10:03 AM CDT) CLINICAL INFORMATION: [facility] Comment:SCREENING LMP [facility] Comment:IUD Previous Pap [facility] Comment:NONE GIVEN Prev. Bx [facility] Comment:NONE GIVEN SOURCE: [facility] Comment:Cervix, Endocervix Pap, specimen adequacy [facility] Comment: Satisfactory for evaluation. Endocervical/transformation zone component present. HPV interp [facility] Comment: Cytology Results: Negative for intraepithelial lesion or malignancy. COMMENTS [facility] Comment: This Pap test has been evaluated with computer assisted technology. Patroller [facility] Comment: CAK, CT(ASCP) CT Screening Location: [place] [address] , [place] [address] Comment [facility] Comment: EXPLANATORY NOTE: The Pap is [...] High Risk E6/E7 Not Detected NOT DETECTED [facility] Comment: Not Detected High Risk HPV types (16,18,31,33,35,39,45,51,52, 56,58,59,66,68) were not detected. Other HPV types which cause anogenital lesions may be present. The significance of the other types of HPV in malignant processes has not been established. Methodology: Real Time PCR Thin prep 12/03/2023 10:0 3 AM CDT 12/04/2023 11:35 AM CDT us Maya Fischer NP LAB CYTOLOGY ORDERABLES Final Re sult [facility] [address] [place] [address] [facility]/[place] [address] [facility] [place] [address] from Last 3 Months or Most Recently Relevant to Health Maintenance Insurance [facility] Advance Directives For more information, please contact: [phone] Documents on File Type Date Recorded Patient Straight Ruling Machine Operator Expl anation ADVANCE DIRECTIVE 12/12/2021 6:42 AM Power of Supervisor [employer] * Full Code (Latest Code Status on File) Date Activated Date Inactivated Comments 11/08/2021 6:36 PM 11/12/2021 8:31 PM * Full Code Date Activated Date Inactivated Comments 10/07/2018 8:32 PM 10/08/2018 4:36 PM Care Teams Space Controller Relationship Specialty Start Date End Date Malena Jordan MD PCP - General Family Medicine 07/15/22 Charli Rangel MD Consulting Physician Cardiology 07/19/20
--- OUTSIDE RECORDS SUMMARY | 2025-01-02 12:25 | XMS_ITS | Clinical Summary ---
Author Organization [facility] [address] Address [address] [place] [address] Care Team Providers Care Sharepoint Architect Name Role Phone Charli Rangel MD Unavailable [phone] Malena Jordan MD Primary Care Provider + [...] (11/20/2021): Added automatically from request for surgery [id number] Palpitations 12/21/2020 Status post placement of implantable loop record er 12/23/2018 Overview (12/23/2018): Medtronic LINQ ILR implanted on 12/23/18 for PVC's; s/p PVC ablation. 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 No residual deficits. 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 No residual deficits. 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 [...] Type Department Care Team Description 12/28/2024 Telephone [facility] Imaging at [address] [phone] No, Physician 12/27/2024 11:15 AM CDT Ancillary Procedure [facility] Imaging at [address] [phone] Injury of right foot, initial encounter 12/27/2024 11:00 AM CDT Ancillary Procedure [facility] Imaging at [address] [address] Injury of right foot, initial encounter 12/27/2024 8:00 AM CDT Office Visit [facility] Care at [place] [address] [place] [address] Kinza Goyal, LEXY Injury of right foot, initial encounter (Primary Dx); Abrasion of left lower extremity, initial encounter 12/27/2024 Results Follow-Up [facility] [place] [address] [place] [address] Kinza Goyal, LEXY XR Ankle Right 3+ Vw 12/03/2024 Orders Only [facility] [address] [facility] Medical Office Building [address] [place] [address] Yohan Hall MD 11/17/2024 9:20 AM CDT Office Visit [facility]) - [facility] Urology [address] [place] [address] 11th [place] [address] [place] [address] Jose Fernández MD Urinary frequency (Primary Dx); Urine, incontinence, stress female; Urgency of urination 11/14/2024 Telephone [facility] [address] [place] [address] 8th [place] [address] [place] [address] Yohan Hall MD 11/01/2024 2:45 PM CDT Ancillary Procedure [facility] [address] [place] [address] 8th [place] [address] [place] [address] Encounter for loop recorder check (Primary Dx); Palpitations 11/01/2024 Telephone [facility] [address] [place] [address] 8th [place] [address] [place] [address] Yohan Hall MD 10/07/2024 Orders Only [facility] [address] [place] [address] 8th [place] [address] [place] [address] Yohan Hall MD Palpitations (Primary Dx) from Last 3 Months Immunizations Immunization Administration [...] implanted SINUS SURGERY 11/22/2021 CARDIAC ELECTROPHYSIOLOGY PROCEDURE 2012,2018,2019 studies Medical History Medical History Date Comments PVC (premature ventricular contraction) Anemia Gallbladder pain unknown cause f or abdominal pain Arrhythmia Non-compaction cardiomyopathy (HCC) Stroke (HCC) 2009 occasional weakn ess in right leg x3 History of loop recorder implant ed 2012 explanted 2014 PONV (postoperative nausea and vomiting) nausea only x1 Family History Medical History Relation Name Comments Hypertension Father John Mack Diabetes Maternal Grandfather Prasanna Jaquez Hypertension Maternal Grandfather Prasanna Jaquez Breast cancer Maternal Grandmother Linda Jaquez Colon cancer Maternal Grandmother Linda Jaquez Endometrial cancer Maternal Grandmother Linda Herrmannn Tur ner Lupus Maternal Grandmother Linda Jaquez [...] on file Legal Sex Female 7:13 PM COUNTER POCKET TRIMMER Gender Identity Female 08/28/2020 1:39 PM COUNTER POCKET TRIMMER Sexual Orientation Straight 02/23/2020 3: 38 PM CDT 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 Not on file Not on file N [...] 12/27/2024 8:06 AM CDT Plan of Treatment Health Maintenance Due [...] this topic Medical Devices Implanted Type Area Manager Facility Device Identifier Shelf Expiration Date Model / Serial / Lot [employer] [id number] Device Closure Vascade Od5 Fr Femoral Artery - [id number] - [id number] Implanted:Qty: 1 on 07/19/2020 by Charli Rangel MD at [facility] Collagen [employer] 05/01/2022 700-500DX -[id number] / [id number] / [id number] Medtronic Cardiac Rhythm Mgmt Linqsys Reveal Linq Mycarelink Insertable Loop Recorder Automatic - [id number] - [id number] Implanted:Qty: 1 on 12/23/2018 by Charli Rangel MD at [facility] Implantable Loop Recorder N/A: Chest Wall Medtronic Cardiac Rhythm Mgmt [id number] 10/14/2019 LINQSYS / [id number] S / D Medtronic Inc Reveal Linq Ii Implantable Lever [place] Lnq22 - [id number] - [id number] Implanted:Qty: 1 on 07/25/2022 by Yohan Hall MD at [facility] Implantable Loop Recorder Left: Chest Medtronic Inc 12/03/2023 LNQ22 / [id number] / [employer] [id number] Device Closure Vascade Od5 Fr Femoral Artery - [id number] - [id number] Implanted:Qty: 1 on 07/19/2020 by Charli Rangel MD at [facility] [employer] 05/01/2022 700-500DX -05U / [id number] / [id number] [employer] [id number] Device Closure Vascade Od5 Fr Femoral Artery - [id number] - [id number] Implanted:Qty: 1 on 07/19/2020 by Charli Rangel MD at [facility] [employer] 05/01/2022 700-500DX -05U / [id number] / [id number] [employer] [id number] System 6-12fr Mvp Venous Closure Vascade - [id number] - [id number] Implanted:Qty: 1 on 07/19/2020 by Charli Rangel MD at [facility] Linq3 06/03/2022 [id number] [id number] / [id number] / [id number] Linq3 [id number] Device Closure Vascade Od5 Fr Femoral Artery - [id number] - [id number] Implanted:Qty: 1 on 07/19/2020 by Charli Rangel MD at [facility] Linq3 05/01/2022 700-500DX -05U / [id number] / [id number] Procedures Procedure Name Priority Date/Time Associated [...] by John Almanzar M.D. T: Report ID: [id number] Reading Location: [id number] Procedure Note John Almanzar MD - 12/27/2024 [...] by John Almanzar M.D. T: Report ID: [id number] Reading Location: [id number] us Kinza Goyal NP IMG XR PROCEDURES Final Result * XR Foot [...] by John Almanzar M.D. T: Report ID: [id number] Reading Location: [place] [address] Procedure Note John Almanzar MD - 12/27/2024 [...] by John Almanzar M.D. T: Report ID: [id number] Reading Location: [place] [address] Kinza Goyal PROCESSING ENGINEER IMG XR PROCEDURES Final Result * DEVICE CHECK - REMOTE (12/03/2024 4:12 AM CDT) Anatomical Region Laterality Modality Other 12/03/2024 4:12 AM CDT Narrative 12/06/2024 4:25 PM CDT Interpretation Summary: Battery and Leads (BL) Normal battery parameters Presenting Rhythm (MN) Normal Sinus Rhythm Arrhythmic events (AE) No new arrhythmic events in monitoring period Anticoagulation (AC) Patient prescribed Rivaroxaban (Xarelto) Patient on anticoagulant therapy Transmission Information (TI) Implant indication: Palpitations Device Summary Report Follow Up (FU) Patient's primary treating physician will be apprised of findings Procedure Note Yohan Hall MD - 12/06/2024 Interpretation Summary: Battery and Leads (BL) Normal battery parameters Presenting Rhythm (MN) Normal Sinus Rhythm Arrhythmic events (AE) No [...] on anticoagulant therapy Patient prescribed Rivaroxaban (Xarelto) us Yohan Hall MD CV CARDIAC SERVICES PRO CEDURES Final Result * Pap and HPV, reflex to HPV Genotypes (12/03/2023 10:03 AM CDT) CLINICAL INFORMATION: [facility] Comment:SCREENING LMP [facility] Comment:IUD Previous Pap [facility] Comment:NONE GIVEN Prev. Bx [facility] Comment:NONE GIVEN SOURCE: [facility] Comment:Cervix, Endocervix Pap, specimen adequacy [facility] Comment: Satisfactory for evaluation. Endocervical/transformation zone component present. HPV interp [facility] Comment: Cytology Results: Negative for intraepithelial lesion or malignancy. COMMENTS [facility] Comment: This Pap test has been evaluated with computer assisted technology. Driver Service Technician [facility] Comment: CAK, CT(ASCP) CT Screening Location: [place] [address] , [place] [address] [facility] Comment: EXPLANATORY NOTE: The Pap is [...] High Risk E6/E7 Not Detected NOT DETECTED Digital Reasoning /William JIM Comment: Not Detected High Risk [...] NP LAB CYTOLOGY ORDERABLES Final Re sult [facility] [address] [place] [address] Digital Reasoning/[facility] [address] [place] [address] from Last 3 Months or Most Recently Relevant to Health Maintenance Insurance [facility] H[facility]/PPO Address: [place] [address] [facility] H[facility]/PPO Address: [address] [address] [place] [address] [facility] H[facility]/PPO Address: [address] [address] [place] [address] [facility] OPEN ACCESS [facility] CIGELIZ ALLEGIANCE Advance Directives For more information, please contact: [phone] Documents on File Type Date Recorded Patient Density Control Puncher Expl anation ADVANCE DIRECTIVE 12/12/2021 6:42 AM Power of Cdl B Driver-Medical * Full Code (Latest Code Status on File) Date Activated Date Inactivated Comments 11/08/2021 6:36 PM 11/12/2021 8:31 PM * Full Code Date Activated Date Inactivated Comments 10/07/2018 8:32 PM 10/08/2018 4:36 PM Care Teams Sharepoint Architect Relationship Specialty Start Date End Date Malena Jordan MD PCP - General Family Medicine 07/15/22 Charli Rangel MD Consulting Physician Cardiology 07/19/20
--- OUTSIDE RECORDS SUMMARY | 2025-01-02 12:25 | XMS_ITS | Continuity of Care Document ---
Author Organization [facility] Address [address] [facility] [address] [place] [address] Phone Care Team Providers Care Maintenance Service Dispatcher Name Role Phone Best OD, Rigo Unavailable Unavailable Advance Directives Directive Yes / No Effective Date File Name No Information Encounters Encounter Description Practice Location Reason(s) For Visit Diagnoses Date Provider Providers Copied on Encounter [facility], [address], [place], [place], [id number], [place] tel:[phone] [facility] No Information Oct-0 3-200 6 Best OD Rigo. [address] , [address], [place], [address], [place]. tel:[phone] Family History Family Member Type Diagnosis Age At Onset No Information Payers Payer name Insurance type Covered alliance party ID Authoriza tion(s) No Information Social History [...]
--- OUTSIDE RECORDS SUMMARY | 2025-01-02 12:25 | XMS_ITS | CONTINUITY OF CARE DOCUMENT ---
Author Name emir field Address Unknown Organization [facility] Office Address [address] [place] [address] Phone [phone] Care Team Providers Care After School Counselor Name Role Phone Tanesha OHARA Jonnie Unavailable [phone] INSURANCE PROVIDERS Payer name Policy type / Coverage type [place] red democrat ID [facility] Candid io insurance ePub Direct U4 [id number]
--- OUTSIDE RECORDS SUMMARY | 2025-01-02 12:25 | XMS_ITS | Clinical Summary ---
Author Organization [facility] [employer] [place] Address [address] [address] Care Team Providers Care Chartered Financial Analyst Name Role Phone Malena Jordan MD Primary Care Provider [phone] Allergies No known active allergies Medications XARELTO 20 mg Tablet 10/19/19 18 Active sotaloL (BETAPACE) 80 mg tablet Take 1 Tablet by mouth 2 times daily. 05/26/20 22 Active Lactobacillus acidophilus 10 billion cell Capsule Take 1 Capsule by mouth daily. Active INTRAUTERINE DEVICE, IUD, INTRAUTERINE by Intrauterine route. Active fluticasone furoate (ARNUITY) 100 mcg/actuation inhaler Take 1 Puff by inhalation daily. Per homeworker 01/31/20 23 Active HYDROcodone-acetam inophen (NORCO) 5-325 [...] 25 Active fluticasone propionate (FLONASE) 50 mcg/spray [place], Suspension nasal inhaler Administer 2 Sprays in each nostril daily. 48 Gram 10/13/19 25 Active albuterol sulfate HFA 90 mcg/actuation aerosol inhalerIndications :Chronic cough Take 2 Puffs by inhalation every 4 hours as needed for Shortness of Breath. 18 Gram 10/13/19 25 Active Active Problems Problem Noted Date Diagnosed Date Cubital tunnel syndrome on left 01/30/2023 Overview (01/30/2023): treated by pain mgmt at [facility] and with PT. s/p nerve transposition. 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 Hall, body and frame technician. Irritable bowel syndrome with diarrhea 3 Paroxysmal [...] Date Type Department Care Team Description [facility] [place] [address] [place] [address] Emeli Segundo, ANP Cubital tunnel syndrome on left 11/22/2024 External Device Data [facility] ABSTRACTION Provider, Abstract 10/25/2024 External Device Data [facility] ABSTRACTION Provider, Abstract 10/25/2024 External Device Data [facility] ABSTRACTION Provider, Abstract 10/18/2024 External Device Data [facility] ABSTRACTION Provider, Abstract 10/14/2024 3:00 PM SEWER CONNECTOR Procedure visit [facility] at Work [facility] [place] [address] [place] [address] Encounter for issue of repeat prescription (Primary Dx) 10/13/2024 Refill [facility] at [facility] [place] [address] [place] [address] Nilda Hdez, LORENA Non-compaction cardiomyopathy (CMS/HCC); Chronic cough from Last 3 Months Immunizations Immunization Administration [...] on file Legal Sex Female 3:05 PM SEWER CONNECTOR Gender Identity Not on file Sexual Orientation [...] Description 01/16/2025 8:40 AM CDT Office Visit [facility] [place] [address] [place] [address] 01/16/2025 9:00 AM CDT Office Visit [facility] [place] [address] [place] [address] Emeli Segundo, ANP [address] [facility] Katie August [facility] [address] [place] [address] Health Maintenance Due Date Last [...] Maintenance Results * CERV/VAG CYTOPATH, THIN PREP FAMILY MEDICINE RESIDENT AND HPV (12/07/2017 12:00 AM CDT) DIAGNOSIS [...] false-positive and false-negative reports do occur. CYTOLOGY CAREER SERVICES REPRESENTATIVE METHODOLOGY Comment [facility] Comment: This liquid based ThinPrep(R) pap test was screened with the use of an image guided system. HPV HIGH RISK DETECTION Negative Negative [facility] Comment: This high-risk HPV test detects thirteen high-risk types (16/18/31/33/35/39/45/51/52/56/58/59/68) without differentiation. 12/07/2017 12/07/2017 Narrative [facility] - 12/11/2017 3:37 AM CDT Performed at: - [facility] [id number] Catalogue Illustrator: Carlota Limon MD, Phone: [phone] Performed at: - [facility] [id number] Catalogue Illustrator: Carlota Limon MD, Phone: [phone] Specimen Comment: No. of containers..01 ThinPrep Vial us Historical Provider PATHOLOGY/CYTOLOGY ORDERABLE S Final Result [facility] from Last 3 Months or Most Recently Relevant to Health Maintenance Insurance * Guarantor: [employer]) Account Type Relation to Patient Date of Phone Billing Address Corporate Employer ATTN: GLORIA SMITH [address] OPEN ACCESS Care Teams Chartered Financial Analyst Relationship Specialty Start Date End Date Malena Jordan MD PCP - General Family Practice 07/24/22
== END 2025-01-02 12:22 | disposition home or self-care (01) ==
LOC: ANHBWCIMG 12:23
PROVIDERS: PCP Family Medicine; Visit Provider Orthopaedic Surgery
DX: M25.572 Pain in left ankle and joints of left foot (principal)
CPT/HCPCS: 73610

== ENCOUNTER 2025-02-22 01:04 | Day surgery (SDC) | payer OTHER, SELFPAY ==
[2025-02-08 15:53] VITALS: BMI 33.7
--- NOTE | 2025-02-08 16:15 | PC.NURSE ---
Spoke with PATIENT regarding medication XARELTO. Patient verbalizes understanding that the last dose is to be taken on _02/18/25_ and the Endoscopist will instruct them when to restart after the procedure.
--- OUTSIDE RECORDS SUMMARY | 2025-02-22 01:07 | XMS_ITS | Referral Summary ---
Author Organization [facility] [address] Address [address] [place] [address] Care Team Providers Care Permastone Mechanic Name Role Phone Charli Rangel MD Unavailable [phone] Malena Joradn MD Primary Care Provider + Encounters Date Type Department Care Team Description 02/06/2025 Results Follow-Up [facility] [address] [place] [phone] Reanna Valadez NP US Breast Left Limited 02/06/2025 7:51 AM CDT - 02/06/2025 11:59 PM CDT Hospital Encounter [facility] [address] [place] [address] Breast pain, left Discharge Disposition: Discharge to home or self care 02/06/2025 7:51 AM CDT - 02/06/2025 11:59 PM CDT Hospital Encounter [facility] [address] [place] [address] Breast pain, left Discharge Disposition: Discharge to home or self care 01/31/2025 Results Follow-Up [facility] [address] [place] [phone] Reanna Valadez NP Pap, reflex HPV 01/27/2025 Orders Only [facility] [address] [place] [phone] ProviderMaureen MD 01/26/2025 8:00 AM CDT Office Visit [facility] [address] [facility] [address] [place] [phone] Reanna Valadez NP Well woman exam (Primary Dx); Breast pain, left; Pelvic and perineal pain; 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 Telephone [facility] [address] [facility] [address] [place] [phone] Reanna Valadez NP Labs from [facility] 01/20/2025 Orders Only [facility] [address] [place] [address] [address] [place] [address] ProviderMaureen MD 01/20/2025 9:15 AM CDT Office Visit [facility] [address] [place] [address] Luis Miguel Lisa MD Hyperlipidemia LDL goal <130 (Primary Dx); Noncompaction cardiomyopathy (CMS/HCC) (HCC); Palpitations; PVC (premature ventricular contraction); Chronic anticoagulation; History of stroke; Encounter for monitoring sotalol therapy 01/15/2025 Orders Only [facility] [address] [facility] [address] [place] [address] Yohan Hall MD 12/28/2024 Telephone [facility] Imaging at [address] [address] No, Physician 12/27/2024 Results Follow-Up [facility] [place] [address] [place] [phone] Kinza Goyal NP XR Ankle Right 3+ Vw 12/27/2024 11:15 AM CDT Ancillary Procedure [facility] Imaging at [address] [address] Injury of right foot, initial encounter 12/27/2024 11:00 AM CDT Ancillary Procedure [facility] Imaging at [address] [address] Injury of right foot, initial encounter 12/27/2024 8:00 AM CDT Office Visit [facility] [place] [address] [place] [address] Kinza Goyal NP Injury of right foot, initial encounter (Primary Dx); Abrasion of left lower extremity, initial encounter 12/03/2024 Orders Only [facility] [address] [facility] [address] [place] [address] Yohan Hall MD from Last 3 Months Allergies No known active allergies Medications fluticasone (FLONASE) 50 mcg/actuation nasal spray Administer 2 sprays into each nostril as needed for rhinitis 06/07/20 18 Active lisinopril (PRINIVIL,ZESTR IL) 5 mg tabletIndicatio ns:Heart Take 1 tablet (5 mg total) by mouth 2 (two) times a day Active gabapentin (NEURONTIN) 300 mg capsule Take 1 capsule (300 mg total) by mouth 3 (three) times a day 05/11/20 19 Active Lactobacillus acidophilus (Probiotic) 10 billion cell capsuleIndicati ons:for supplement Take by mouth every morning Active azelastine (ASTELIN) 137 mcg (0.1 %) nasal spray Administer 1 spray into each nostril daily Use in each nostril as directed Active hyoscyamine (OSCIMIN) 0.125 mgIndications:U rinary Incontinence Take 1 tablet (0.125 mg total) by mouth as needed for cramping Active levonorgestrel (KYLEENA INTRAUTERINE) by intrauterine route Inserted 05/29/2021 Active EPINEPHrine 0.3 mg/0.3 mL auto-injection syringe 04/08/20 24 Active diazePAM (VALIUM) 5 mg tablet Take 1 tablet (5 mg total) by mouth 3 (three) times a day 01/28/20 24 Active albuterol HFA (PROVENTIL HFA,VENTOLIN HFA,PROAIR HFA) 90 mcg/actuation inhalerIndicati ons:Bronchitis Inhale 2 puffs every 4 (four) hours as needed for wheezing or shortness of breath 1 each 10/03/19 25 Active Xarelto 20 mg tablet TAKE 1 TABLET DAILY WITH DINNER 90 tablet 3 10/28/19 25 Active rosuvastatin (CRESTOR) 10 mg tabletIndicatio ns:Hyperlipidem ia LDL goal <130 Take 1 tablet (10 mg total) by mouth daily 90 tablet 3 01/21/20 25 2025 Active sotaloL (BETAPACE) 80 mg tablet TAKE 1 TABLET TWICE A DAY 180 tablet 1 02/07/20 25 Active sotaloL (BETAPACE) 80 mg tablet Take 1 tablet (80 mg total) by mouth 2 (two) times a day 180 tablet 11/10/19 25 2024 Discontinued Active Problems Problem Noted Date Diagnosed Date 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 Pelvic ultrasound and colonoscopy as scheduled next month. Hyperlipidemia LDL goal <130 01/20/2025 Encounter for monitoring sotalol therapy 025 Pelvic and perineal pain 12/03/2023 Assessment & [...] (11/20/2021): Added automatically from request for surgery [id number] Palpitations 12/21/2020 Status post placement of implantable loop record er 12/23/2018 Overview (12/23/2018): Medtronic LINQ ILR implanted on 12/23/18 for PVC's; s/p PVC ablation. 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 No residual deficits. 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 No residual deficits. 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 Not on file Not on file N ot on file Last Filed Vital Signs Vital Sign Reading Time Taken Comments Blood Pressure 100/70 01/26/2025 7:57 AM CDT Pulse 70 01/20/2025 9:10 AM CDT Temperature 36.7 C (98 F) 12/27/2024 8:06 AM CDT Respiratory Rate 20 12/27/2024 8:06 AM CDT Oxygen Saturation 99% 01/20/2025 9:10 AM CDT Inhaled Oxygen Concentration - - Weight 97.6 kg (215 lb 2.7 oz) 02/06/2025 7:58 A M CDT Height 170.2 cm (5' 7) 02/06/2025 7:58 AM CDT Body Mass Index 33.7 02/06/2025 7:58 AM CDT Plan of Treatment Not on file Medical Devices Implanted Type Area Rotary Driller Helper Device Identifier Shelf Expiration Date Model / Serial / Lot [employer] [id number] Device Closure Vascade Od5 Fr Femoral Artery - [id number] - [id number] Implanted:Qty: 1 on 07/19/2020 by Charli Rangel MD at [facility] Collagen [employer] Inc 05/01/2022 700-500DX -05U / [id number] / [id number] Medtronic Cardiac Rhythm Mgmt Linqsys Reveal Linq Mycarelink Insertable Loop Recorder Automatic - [id number] - [id number] Implanted:Qty: 1 on 12/23/2018 by Charli Rangel MD at [facility] Implantable Loop Recorder N/A: Chest Wall Medtronic Cardiac Rhythm Mgmt [id number] 10/14/2019 LINQSYS / [id number] / D Medtronic Inc Reveal Linq Ii Implantable Proof Inspector Lnq22 - [id number] - [id number] Implanted:Qty: 1 on 07/25/2022 by Yohan Hall MD at [facility] Implantable Loop Recorder Left: Chest Medtronic Inc 12/03/2023 LNQ22 / [id number] / [employer] Inc [id number] Device Closure Vascade Od5 Fr Femoral Artery - [id number] - [id number] Implanted:Qty: 1 on 07/19/2020 by Charli Rangel MD at [facility] [employer]me [employer] Inc 05/01/2022 700-500DX -05U / [id number] / [id number] [employer] Inc [id number] Device Closure Vascade Od5 Fr Femoral Artery - [id number] - [id number] Implanted:Qty: 1 on 07/19/2020 by Charli Rangel MD at [facility] [place] 05/01/2022 700-500DX -05U / [id number] / [id number] [employer] [id number] System 6-12fr Mvp Venous Closure Vascade - [id number] - [id number] Implanted:Qty: 1 on 07/19/2020 by Charli Rangel MD at [facility] [employer] 06/03/2022 800-612C- 10U / [id number] / [id number] [employer] Inc [id number] Device Closure Vascade Od5 Fr Femoral Artery - [id number] - [id number] Implanted:Qty: 1 on 07/19/2020 by Charli Rangel MD at [facility] [place] 05/01/2022 700-500DX -05U / [id number] / [id number] Procedures Procedure Name Priority Date/Time Associated Diagnosis Comments US BREAST LEFT LIMITED Schedule Routine, Read Routine (OP Routine) 02/06/2025 8:46 AM CDT Breast pain, left DIAGNOSTIC MAMMOGRAM BILATERAL W TERRENCE Schedule Routine, Read Routine (OP Routine) 02/06/2025 8:07 AM CDT Breast pain, left HARRISON SYNDROME PANEL Routine 01/27/2025 2:05 PM CDT PAP, REFLEX HPV Routine 01/26/2025 8:33 AM CDT Well woman exam ELECTROCARDIOGRAM REPORT Routine 01/20/2025 3:27 PM CDT Palpitations PVC (premature ventricular contraction) Encounter for monitoring sotalol therapy LIPID PANEL Routine 01/16/2025 3:27 PM CDT DEVICE CHECK - REMOTE Routine 01/15/2025 4:05 AM CDT XR ANKLE RIGHT 3 OR MORE VIEWS Schedule PETER, Read PETER (Appt Today, Awaiting Results) 12/27/2024 10:54 AM CDT Injury of right foot, initial encounter XR FOOT RIGHT 3 OR MORE VIEWS Schedule PETER, Read PETER (Appt Today, Awaiting Results) 12/27/2024 10:54 AM CDT Injury of right foot, initial encounter DEVICE CHECK - REMOTE Routine 12/24/2024 2:00 AM CDT from Last 3 Months Results * US Breast Left Limited (02/06/2025 8:46 AM CDT) Anatomical Region Laterality Modality Breast Left Ultrasound 02/06/2025 10:1 5 AM CDT Impressions 02/06/2025 10:15 AM CDT No mammographic or sonographic evidence of malignancy. OVERALL FINAL ASSESSMENT: BI-RADS Category 1: Negative. RECOMMENDATION: The focal left breast and left axillary pain should be managed clinically. Continued clinical follow-up is recommended. Unless earlier screening is clinically indicated, recommend annual screening mammography beginning at 40 years of age. Electronically signed by: Fani Dey M.D. Narrative 02/06/2025 10:15 AM CDT EXAMINATION: BILATERAL DIGITAL DIAGNOSTIC MAMMOGRAM INCLUDING CAD AND BILATERAL DIGITAL BREAST TOMOSYNTHESIS; LEFT BREAST SONOGRAM HISTORY: Left axillary pain, baseline study COMPARISON: Baseline study TECHNIQUE: Full field digital mammographic views of BOTH breasts were performed, including computer aided detection (CAD) and BILATERAL digital breast tomosynthesis (DBT). Directed ultrasound evaluation of the LEFT breast was performed. BREAST PARENCHYMAL COMPOSITION: The breasts are heterogeneously dense, which may obscure small masses. MAMMOGRAM FINDINGS: A marker is placed at the site of the left axillary pain. No mammographic abnormalities appreciated associated with the marker. There is no dominant density, suspicious microcalcification or area of architectural distortion bilaterally. SONOGRAM FINDINGS: Targeted left breast ultrasound was performed in the region of interest as indicated by the patient. This correlates as the 1 o'clock position 10 cm from the nipple as well as the left axilla. No sonographic abnormality is appreciated. us Reanna Valadez NP IMG MAMMO PROCEDURES Final Result * Diagnostic Mammogram Bilateral W Terrence (02/06/2025 8:07 AM CDT) Anatomical Region Laterality Modality Breast Bilateral Mammography 02/06/2025 10:1 5 AM CDT Impressions 02/06/2025 10:15 AM CDT No mammographic or sonographic evidence of malignancy. OVERALL FINAL ASSESSMENT: BI-RADS Category 1: Negative. RECOMMENDATION: The focal left breast and left axillary pain should be managed clinically. Continued clinical follow-up is recommended. Unless earlier screening is clinically indicated, recommend annual screening mammography beginning at 40 years of age. Electronically signed by: Laney Reid 02/06/2025 10:15 AM CDT EXAMINATION: BILATERAL DIGITAL DIAGNOSTIC MAMMOGRAM INCLUDING CAD AND BILATERAL DIGITAL BREAST TOMOSYNTHESIS; LEFT BREAST SONOGRAM HISTORY: Left axillary pain, baseline study COMPARISON: Baseline study TECHNIQUE: Full field digital mammographic views of BOTH breasts were performed, including computer aided detection (CAD) and BILATERAL digital breast tomosynthesis (DBT). Directed ultrasound evaluation of the LEFT breast was performed. BREAST PARENCHYMAL COMPOSITION: The breasts are heterogeneously dense, which may obscure small masses. MAMMOGRAM FINDINGS: A marker is placed at the site of the left axillary pain. No mammographic abnormalities appreciated associated with the marker. There is no dominant density, suspicious microcalcification or area of architectural distortion bilaterally. SONOGRAM FINDINGS: Targeted left breast ultrasound was performed in the region of interest as indicated by the patient. This correlates as the 1 o'clock position 10 cm from the nipple as well as the left axilla. No sonographic abnormality is appreciated. us Reanna Valadez NP IMG MAMMO PROCEDURES Final Result * Harrison Syndrome Panel (01/27/2025 2:05 PM CDT) Historical Provider MD LAB BLOOD ORDERABLES Stefany gold Result * Pap, reflex HPV (01/26/2025 8:33 AM CDT) CLINICAL INFORMATION: Melissa Card Comment:WELL WOMAN LMP Melissa Card Comment:A Previous Pap Melissa Card Comment:NONE GIVEN Prev. Bx Melissa Card Comment:NONE GIVEN SOURCE: Melissa Card Comment:Cervix, Endocervix Pap, specimen adequacy Melissa Card Comment: Satisfactory for evaluation. Endocervical/transformation zone component present. HPV interp Melissa Card Comment: Cytology Results: Negative for intraepithelial lesion or malignancy. COMMENTS Melissa Card Comment: This Pap test has been evaluated with computer assisted technology. Biomedical Equipment Support Specialist Jayro Iglesias Comment: MMD, CT(ASCP) CT Screening Location: [address], [place] [address] Comment Melissa Card Comment: EXPLANATORY NOTE: The Pap is a screening test for cervical cancer. It is not a diagnostic test and is subject to false negative and false positive results. It is most reliable when a satisfactory sample, regularly obtained, is submitted with relevant clinical findings and history, and when the Pap result is evaluated along with historic and current clinical information. Thin prep 01/26/2025 8:33 AM CDT 01/27/2025 7:57 PM CDT Reanna Valadez NP LAB CYTOLOGY ORDERABLES Fin al Result [facility] [address] [place] [address] * Electrocardiogram Report (01/20/2025 3:27 PM CDT) Luis Miguel Lisa MD ECG ORDERABLES Final Res ult * (ABNORMAL) Lipid panel (01/16/2025 3:27 PM CDT) SCRIBED Cholesterol, Total 260(A) 30 - 199 mg/dL [facility] SCRIBED Triglycerides 125 <=149 mg/dL [facility] SCRIBED HDL 56 >=40 mg/dL [facility] SCRIBED LDL 178(A) <=129 mg/dL [facility] Scribed Non-HDL Cholesterol 204 NONE mg/dL [facility] SCRIBED Total Cholesterol/HDL Ratio 260 NONE [facility] Blood Historical Provider LAB BLOOD ORDERABLES Edit ed Result - Final Performing Organization Address City/[facility]/ZIP Co de Phone Number [facility] * DEVICE CHECK - REMOTE (01/15/2025 4:05 AM CDT) Anatomical Region Laterality Modality Other 01/15/2025 4:05 AM CDT Narrative 01/26/2025 9:26 AM CDT Interpretation Summary: Battery and Leads (BL) Normal battery parameters Presenting Rhythm (TN) Normal Sinus Rhythm Arrhythmic events (AE) False Pause event(s) recorded due to undersensing Anticoagulation (AC) Patient prescribed Rivaroxaban (Xarelto) Patient on anticoagulant therapy Transmission Information (TI) Device Summary Report Implant indication: Cryptogenic Stroke Implant indication: Syncope Follow Up (FU) Patient's primary treating physician will be apprised of findings Procedure Note Yohan Hall MD - 01/26/2025 Interpretation Summary: Battery and Leads (BL) Normal battery parameters Presenting Rhythm (TN) Normal Sinus Rhythm Arrhythmic events (AE) False Pause event(s) recorded due to undersensing Anticoagulation (AC) Patient prescribed Rivaroxaban (Xarelto) Patient on anticoagulant therapy Transmission Information (TI) Device Summary Report Implant indication: Cryptogenic Stroke Implant indication: Syncope Follow Up (FU) Patient's primary treating physician will be apprised of findings us Yohan Hall MD [facility] CARDIAC SERVICES PRO CEDURES Final Result * XR Ankle Right 3+ Vw (12/27/2024 [...] by John Almanzar M.D. T: Report ID: [id number] Reading Location: [place] [address] Procedure Note John Almanzar MD - 12/27/2024 [...] by John Almanzar M.D. T: Report ID: [id number] Reading Location: [place] [address] Kinza Goyal VISITOR SERVICES ASSOCIATE IMG XR PROCEDURES Final Result * XR [...] by John Almanzar M.D. T: Report ID: [id number] Reading Location: [id number] Procedure Note John Almanzar MD - 12/27/2024 [...] by John Almanzar M.D. T: Report ID: [id number] Reading Location: [id number] Kinza Goyal NP IMG XR PROCEDURES Final Result * DEVICE CHECK - REMOTE (12/24/2024 2:00 AM CDT) Anatomical Region Laterality Modality Other 12/24/2024 2:00 AM CDT Narrative 12/06/2024 4:25 PM CDT Interpretation Summary: Battery and Leads (BL) Normal battery parameters Presenting Rhythm (TN) Normal Sinus Rhythm Arrhythmic events (AE) False Pause event(s) recorded due to undersensing Premature Ventricular Contraction(s) Anticoagulation (AC) Patient on anticoagulant therapy Patient prescribed Rivaroxaban (Xarelto) Transmission Information (TI) Implant indication: Cryptogenic Stroke Device Summary Report Follow Up (FU) Patient's primary treating physician will be apprised of findings Procedure Note Yohan Hall MD - 01/11/2025 Interpretation Summary: Battery and Leads (BL) Normal battery parameters Presenting Rhythm (TN) Normal Sinus Rhythm Arrhythmic events (AE) False Pause event(s) recorded due to undersensing Premature Ventricular Contraction(s) Anticoagulation (AC) Patient on anticoagulant therapy Patient prescribed Rivaroxaban (Xarelto) Transmission Information (TI) Implant indication: Cryptogenic Stroke Device Summary Report Follow Up (FU) Patient's primary treating physician will be apprised of findings Yohan Hall MD [facility] CARDIAC SERVICES PRO CEDURES Edited Result - Final from Last 3 Months [facility] H[facility]/PPO Address: [address] [address] [facility] H[facility]/PPO Address: [place] [id number] [place] [address] [facility] OPEN ACCESS CIG[employer] ALLEGIANCE CIG[employer] ALLEGIANCE Advance Directives For more information, please contact: [phone] Documents on File Type Date Recorded Patient Data Services Developer Expl anation ADVANCE DIRECTIVE 12/12/2021 6:42 AM Power of Pyrometer Operator-Medical * Full Code (Latest Code Status on File) Date Activated Date Inactivated Comments 11/08/2021 6:36 PM 11/12/2021 8:31 PM * Full Code Date Activated Date Inactivated Comments 10/07/2018 8:32 PM 10/08/2018 4:36 PM Care Teams Permastone Mechanic Relationship Specialty Start Date End Date Malena Jordan MD PCP - General Family Medicine 07/15/22 Charli Rangel MD Consulting Physician Cardiology 07/19/20
--- OUTSIDE RECORDS SUMMARY | 2025-02-22 01:07 | XMS_ITS | Continuity of Care Document ---
Author Organization [facility] Address [address] [facility] [address] [place] [address] Phone Care Team Providers Care Trap Setter Name Role Phone Best OD, Rigo Unavailable Unavailable Advance Directives Directive Yes / No Effective Date File Name No Information Encounters Encounter Description Practice Location Reason(s) For Visit Diagnoses Date Provider Providers Copied on Encounter [facility], [address], [place], [place], [id number], [place] tel:[phone] [facility] No Information Oct-0 3-200 6 Best OD Rigo. [address], [place], [address], [place]. tel:[phone] Family History Family Member Type Diagnosis Age [...]
--- OUTSIDE RECORDS SUMMARY | 2025-02-22 01:07 | XMS_ITS | Clinical Summary ---
Author Organization [facility] [address] Address [address] [place] [address] Care Team Providers Care Reimbursement Coordinator Name Role Phone Charli Rangel MD Unavailable [phone] Malena Jordan MD Primary Care Provider + [...] (11/20/2021): Added automatically from request for surgery [id number] Palpitations 12/21/2020 Status post placement of implantable loop record er 12/23/2018 Overview (12/23/2018): Medtronic LINQ ILR implanted on 12/23/18 for PVC's; s/p PVC ablation. 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 No residual deficits. 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 No residual deficits. -Continue Rivaroxiban Encounters Date Type Department Care Team Description 02/06/2025 7:51 AM CDT - 02/06/2025 11:59 PM CDT Hospital Encounter [facility] [address] [place] [address] Breast pain, left Discharge Disposition: Discharge to home or self care 02/06/2025 7:51 AM CDT - 02/06/2025 11:59 PM CDT Hospital Encounter [facility] [address] [place] [address] Breast pain, left Discharge Disposition: Discharge to home or self care 02/06/2025 Results Follow[facility]Up [facility] [address] [facility] [address] [place] [address] Reanna Valadez NP US Breast Left Limited 01/31/2025 Results Follow-Up [facility] [address] [facility] [address] [place] [phone] Reanna Valadez NP Pap, reflex HPV 01/27/2025 Orders Only [facility] [address] [facility] [address] [place] [phone] Maureen Jaimes MD 01/26/2025 8:00 AM CDT Office Visit [facility] [address] [facility] [address] [place] [address] Reanna Valadez NP Well woman exam (Primary Dx); Breast pain, left; Pelvic and perineal pain; 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 9:15 AM CDT Office Visit [facility] Cardiology [address] [place] [address] Luis Miguel Lisa MD Hyperlipidemia LDL goal <130 (Primary Dx); Noncompaction cardiomyopathy (CMS/HCC) (HCC); Palpitations; PVC (premature ventricular contraction); Chronic anticoagulation; History of stroke; Encounter for monitoring sotalol therapy 01/20/2025 Telephone [facility] [address] [place] [phone] Reanna Valadez NP Labs from [facility] 01/20/2025 Orders Only [facility] Medical [facility] Cardiology [address] [place] [address] [address] [place] [address] ProviderMaureen MD 01/15/2025 Orders Only [facility] Cardiology [facility] Medical Office Building [address] [place] [address] Yohan Hall MD 12/28/2024 Telephone [facility] Imaging at [address] [address] Physician Randi 12/27/2024 11:15 AM CDT Ancillary Procedure [facility] Imaging at [address] [address] Injury of right foot, initial encounter 12/27/2024 11:00 AM CDT Ancillary Procedure [facility] Imaging at [address] [phone] Injury of right foot, initial encounter 12/27/2024 8:00 AM CDT Office Visit [facility] [address] [place] [address] Kinza Goyal NP Injury of right foot, initial encounter (Primary Dx); Abrasion of left lower extremity, initial encounter 12/27/2024 Results Follow-Up [facility] [address] [place] [address] Kinza Goyal NP XR Ankle Right 3+ Vw 12/03/2024 Orders Only [facility] Cardiology [facility] Medical Office Building [address] [place] [address] Yohan Hall MD from Last [...] Prasanna Jaquez Breast cancer Maternal Grandmother Linda Carey Jaquez Cancer Maternal Grandmother Linda Carey Jaquez Colon cancer Maternal Grandmother Linda Carey Jaquez Endometrial cancer Maternal Grandmother Linda Carey Tur ner Lupus Maternal Grandmother Linad Carey Jaquez Skin cancer Maternal Grandmother Linda Carey Jaquez hnpcc Maternal Grandmother Linda Carey Jaquez Cancer Mother Linda Urbanobarger Hypertension Mother Linda Urbanobarcynthia Skin cancer Mother Linda Urbanobarger hnpcc Mother Linda Urbanobarcynthia Brain cancer Mother's Brother Serjio Jaquez Cancer Mother's Brother Serjio Jaquez Anesthesia problems Neg Hx Relation Name Status Comments Father John Mack Alive Maternal Grandfather Prasanna Jaquez type 2 Maternal Grandmother Linda Carey Jaquez Mother Linda Mack Alive Mother's Brother Serijo Jaquez Social History Tobacco Use Types Packs/Day [...] on file Legal Sex Female 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 Gender Identity Female 08/28/2020 1:39 PM TIN RECOVERY WORKER Sexual Orientation Straight 02/23/2020 3: 38 PM CDT 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 file Not on file N [...] 02/06/2025 7:58 AM CDT Plan of Treatment Health Maintenance Due Date Last Done Comments Hepatitis C Screening 1989 Varicella Vaccines (1 of 2 - 13+ 2-dose series) 2002 Influenza Vaccine (#1) 2025 Cervical Cancer Screening 01/26/2026 01/26/2025, Depression Screening 01/26/2026 01/26/2025, 12/03/19 24 Regular Well Visit/Exam 18-64 01/26/2026 01/26/2025, 12/03/2023 DTaP/Tdap/Td Vaccine (6 - Td or Tdap) 12/08/2027 12/07/2017, 04/07/2002, 03/25/1993, Additional history exists Hepatitis B Screening Completed 08/23/2004 , 10/28/2002, 09/13/2002 HPV Vaccines Aged Out No longer eligi ble based on patient's age to complete this topic Pneumococcal vaccine <65 Aged Out No longer eligible based on patient's age to complete this topic Medical Devices Implanted Type Area Manufacturing Supervisor 2Nd Shift Device Identifier Shelf Expiration Date Model / Serial / Lot [employer] [id number] Device Closure Vascade Od5 Fr Femoral Artery - [id number] - [id number] Implanted:Qty: 1 on 07/19/2020 by Charli Rangel MD at [facility] Collagen [employer] 05/01/2022 700-500DX -[id number] / [id number] / [id number] Medtronic Cardiac Rhythm Mgmt Linqsys Reveal Linq Mycarelink Insertable Loop Recorder Automatic - [id number] - [id number] Implanted:Qty: 1 on 12/23/2018 by Charli Rangel MD at [facility] Implantable Loop Recorder N/A: Chest Wall Medtronic Cardiac Rhythm Mgmt [id number] 10/14/2019 LINQSYS / [id number] / D Medtronic Inc Reveal Linq Ii Implantable Cotton Inspector Lnq22 - [id number] - [id number] Implanted:Qty: 1 on 07/25/2022 by Yohan Hall MD at [facility] Implantable Loop Recorder Left: Chest Medtronic Inc 12/03/2023 LNQ22 / [id number] / [employer] [id number] Device Closure Vascade Od5 Fr Femoral Artery - [id number] - [id number] Implanted:Qty: 1 on 07/19/2020 by Charli Rangel MD at [facility] [employer] 05/01/2022 700-500DX -05U / [id number] / [id number] [employer] [id number] Device Closure Vascade Od5 Fr Femoral Artery - [id number] - [id number] Implanted:Qty: 1 on 07/19/2020 by Charli Rangel MD at [facility] [employer] 05/01/2022 700-500DX -05U / [id number] / [id number] [employer] [id number] System 6-12fr Mvp Venous Closure Vascade - [id number] - [id number] Implanted:Qty: 1 on 07/19/2020 by Charli Rangel MD at [facility] [employer] 06/03/2022 [id number] [id number] / [id number] / [id number] [employer] [id number] Device Closure Vascade Od5 Fr Femoral Artery - [id number] - [id number] Implanted:Qty: 1 on 07/19/2020 by Charli Rangel MD at [facility] [employer] 05/01/2022 700-500DX -05U / [id number] / [id number] Procedures Procedure Name Priority Date/Time Associated [...] left axilla. No sonographic abnormality is appreciated. Reanna Valadez NP IMG MAMMO PROCEDURES Final [...] left axilla. No sonographic abnormality is appreciated. Reanna Valadez NP IMG MAMMO PROCEDURES Final Result * Harrison Syndrome Panel (01/27/2025 2:05 PM CDT) Historical Provider LAB BLOOD ORDERABLES Stefany l Result * Pap, reflex HPV (01/26/2025 8:33 [...] has been evaluated with computer assisted technology. Hair Mixer Jayro Iglesias Comment: MMD, CT(ASCP) CT Screening Location: [address], [place] [address] Comment Melissa Card Comment: EXPLANATORY NOTE: The [...] NP LAB CYTOLOGY ORDERABLES Fin al Result Performing Organization Address City/State/[facility] Co de Phone Number [facility] [employer] [facility] [address] [place] [address] * Electrocardiogram Report (01/20/2025 3:27 PM CDT) [...] ed Result - Final Performing Organization Address City/[facility]/ZIP Co de Phone Number [facility] * DEVICE CHECK - REMOTE (01/15/2025 4:05 AM CDT) Anatomical Region Laterality Modality Other 01/15/2025 4:05 AM CDT Narrative 01/26/2025 9:26 AM CDT Interpretation Summary: Battery and Leads (BL) Normal battery parameters Presenting Rhythm (IL) Normal Sinus Rhythm Arrhythmic events (AE) False [...] Leads (BL) Normal battery parameters Presenting Rhythm (IL) Normal Sinus Rhythm Arrhythmic events (AE) False [...] by John Almanzar M.D. T: Report ID: [id number] Reading Location: [id number] Procedure Note John Almanzar MD - 12/27/2024 [...] by John Almanzar M.D. T: Report ID: [id number] Reading Location: [place] [address] Kinza Goyal NP IMG XR PROCEDURES Final [...] by John Almanzar M.D. T: Report ID: [id number] Reading Location: [id number] Procedure Note John Almanzar MD - 12/27/2024 [...] by John Almanzar M.D. T: Report ID: [id number] Reading Location: [id number] Kinza Goyal NP IMG XR PROCEDURES Final Result * DEVICE CHECK - REMOTE (12/24/2024 2:00 AM CDT) Anatomical Region Laterality Modality Other 12/24/2024 2:00 AM CDT Narrative 12/06/2024 4:25 PM CDT Interpretation Summary: Battery and Leads (BL) Normal battery parameters Presenting Rhythm (IL) Normal Sinus Rhythm Arrhythmic events (AE) False [...] Leads (BL) Normal battery parameters Presenting Rhythm (IL) Normal Sinus Rhythm Arrhythmic events (AE) False [...] - Final from Last 3 Months Insurance [facility] Advance Directives For more information, please contact: [phone] Documents on File Type Date Recorded Patient Second Ride Fare Collector Expl anation ADVANCE DIRECTIVE 12/12/2021 6:42 AM Power of Molecular Biology Director-Medical * Full Code (Latest Code Status on File) Date Activated Date Inactivated Comments 11/08/2021 6:36 PM 11/12/2021 8:31 PM * Full Code Date Activated Date Inactivated Comments 10/07/2018 8:32 PM 10/08/2018 4:36 PM Care Teams Reimbursement Coordinator Relationship Specialty Start Date End Date Malena Jordan MD PCP - General Family Medicine 07/15/22 Charli Rangel MD Consulting Physician Cardiology 07/19/20
--- OUTSIDE RECORDS SUMMARY | 2025-02-22 01:07 | XMS_ITS | Encounter Summary ---
Author Organization [facility] Address [address] [place] [address] Care Team Providers Care Diesel Instructor Name Role Phone Malena Jordan MD Primary Care Provider [phone] Encounter Details Date Type Department Care Team (Latest Contact Info) Description 01/17/2025 Results Follow-Up [facility] [address] [place] [address] Emeli Segundo, ARMANDO [address] 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 * Result Encounter Note - Emeli Segundo ANP - 01/17/2025 11:38 AM CDT Contact patient regarding result. Cholesterol levels very high. Other labs good. Because of her medical history, recommend discuss cholesterol lowering treatment with her PCP. documented in this encounter Plan of Treatment Upcoming Encounters Date Type Department Care Team (Late st Contact Info) Description 04/25/2025 9:30 AM CDT Office Visit [facility] [address] [facility] [facility] [place] [address] Emeli Segundo ANP [phone] [facility] [address] [facility] [address] [place] [address] documented as of this encounter Visit Diagnoses Not on filedocumented in this encounter Care Teams Diesel Instructor Relationship Specialty Start Date End Date Malena Jordan MD PCP - General Family Practice 07/24/22 documented as of this encounter
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
--- OUTSIDE RECORDS SUMMARY | 2025-02-22 01:07 | XMS_ITS | Encounter Summary ---
Author Organization [facility] Healthcare Address [address] [place] [address] Care Team Providers Care Criminal Justice Lawyer Name Role Phone Charli Rangel MD Unavailable [phone] Malena Jordan MD Primary Care Provider + Encounter Details Date Type Department Care Team (Late st Contact Info) Description 01/31/2025 Results Follow-Up [facility] [address] [place] [address] [address] [place] [address] Reanna Valadez NP [address] [place] [address] Pap, reflex HPV Social History Tobacco Use Types Packs/Day Years Used Date Smoking Tobacco: Never Smokeless Tobacco: Never Alcohol Use Standard Drinks/Week Comments Yes 0 [...] on file 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 [employer] Gender Identity Female 08/28/2020 1:39 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
[2025-02-22 06:58] VITALS: BP 110/69; PULSE 60; RESP 18; TEMP 36.4; O2SAT 100; BMI 34.1
[2025-02-22 07:16] LABS: BEDSIDEPREGUCG Negative (Negative)
[2025-02-22] MEDS: LACTATED RINGERS 1,000 ML 150 ML IV CONT (07:20)
--- NOTE | 2025-02-22 07:25 | P.PNAN_ITS ---
Anes - Initial Pre Proc Eval Procedure: Operation Date: 02/22/25 08:00 Proposed Procedures p Screening Colonoscopy - Don Vazquez MD Date/Time: 02/22/25 07:25 Surgeon: Don Vazquez MD Pre Op Diagnosis: Screening Patient Data Age: 34 Gender: F Height: 1.7 m Weight: 98.8 kg Last Vital Signs Temp 97.6 F 02/22/25 06:58 Pulse 60 02/22/25 06:58 Resp 18 02/22/25 06:58 BP 110/69 02/22/25 06:58 Pulse Ox 100 02/22/25 06:58 O2 Del Method Room Air 02/22/25 06:58 Allergies Allergy/AdvReac Type Severity Reaction Status Date / Time No Known Allergies Allergy Verified 02/22/25 07:05 Home Medications ?Medication ?Instructions ?Recorded ?Confirmed ?Type lisinopril 10 mg tablet 10 mg PO DAILY 08/23/19 02/22/25 History rivaroxaban 20 mg tablet (Xarelto) 20 mg PO DAILY 08/23/19 02/22/25 History fluticasone propionate 50 2 spray intranasal BID #16 mL 09/25/21 02/22/25 Rx mcg/actuation nasal spray,suspension (Flonase Allergy Relief) sotalol 80 mg tablet 80 mg PO BID 11/18/21 02/22/25 History levonorgestrel 17.5 mcg/24 hr (up 1 device intrauterine DAILY 04/07/22 02/22/25 History to 5 yrs) 19.5mg intrauterine device (Kyleena) hyoscyamine sulfate 0.125 mg 0.125 mg PO QID PRN ibsd 05/27/23 02/08/25 History disintegrating tablet diazepam 5 mg tablet (Valium) 5 mg PO TID PRN spasms #30 tabs 02/24/24 02/08/25 Rx hydrocodone 5 mg-acetaminophen 325 1 tablet PO Q6H PRN pain #30 tabs 02/24/24 02/08/25 Rx mg tablet epinephrine 0.3 mg/0.3 mL 0.3 mg (0.3 mL) IM ONCE #2 ea 04/08/24 02/08/25 Rx injection, auto-injector (EpiPen) gabapentin 300 mg capsule 300 mg PO TID #270 caps 11/29/24 02/22/25 Rx doxycycline monohydrate 100 mg 100 mg PO ONCE #42 tab-caps 01/24/25 02/08/25 Rx capsule typhoid vaccin,live,attenuated 2 See Rx Instructions PO .COMPLEX #4 01/24/25 02/08/25 Rx billion unit capsule,delayed caps release (Vivotif) lidocaine 5 % topical patch 1 patch topical DAILY PRN pain 02/08/25 02/08/25 History rosuvastatin 10 mg tablet 10 mg PO DAILY 02/08/25 02/22/25 History Laboratory Tests 02/22/25 07:14 POC Urine HCG, Qual Negative (Negative) Patient hx anesthesia problems: other (hx of higher requirements of anesthetics in the past. ) Family hx anesthesia problems: none Results Review: All pre-operative results and documents have been reviewed as part of the pre- operative evaluation. [facility] Past Medical History Medical History Neuritis of left ankle Right ankle sprain Hip bursitis, left Otalgia of both ears Nasal obstruction Hypertrophy of both inferior nasal turbinates Nasal septal deviation Broken foot Left PVC (premature ventricular contraction) Heart beat abnormality Chest tightness SOB (shortness of breath) on exertion Wears glasses Lightheadedness Hip pain Trochanteric bursitis of right hip Actinic keratoses Nasopharyngitis Cerebrovascular accident (CVA) Dysfunctional gallbladder Endometriosis of peritoneum Epigastric abdominal pain Gastroesophageal reflux disease without esophagitis History of CVA (cerebrovascular accident) embolic: tte ( 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 no evidence of hypersomnia Anemia Cardiac segmental configuration with atrial configuration unknown, ventricular D-loop, and inverted normally aligned great arteries Adenomyosis Stroke Jul 2010; right-sided weakness and expressive aphasia; L frontal lobe, R frontal, L temp-occipital lobes Left ventricular noncompaction Surgical History Surgical History S/P cubital tunnel release L H/O colonoscopy H/O endoscopy H/O cardiac radiofrequency ablation [place] teeth removed H/O exploratory laparotomy Family History Family History Father Hypertension Patient's father is in good health Grandparent Carcinoma of colon Diabetes mellitus Endometrial cancer Breast cancer Sibling Patient's brother is in good health Mother Family history of gynecological problem Other Brain cancer Cerebrovascular accident Heart disease Skin cancer Social History Social History Smoking status: Never smoker Second hand tobacco smoke exposure: No Alcohol intake: current Drinks per week: 1 Alcohol use details: drinks wine and vodka Substance use: never Substance use type: does not use Lack of Transportation: No Lack of Food: Never True Current Housing: I Have Housing Concerned About Future Housing: No Difficulty Paying Gas/Electric Bills: No Difficulty Paying for Meds: No Currently Unemployed: No Education: Associate Degree Difficulty w/ Childcare or Family Care: No Living arrangements: alone Occupation/Education: occupation 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 Hyperlipidemia, hx of PVCs/loop recorder, LV noncontraction syndrome. Pt doing well at this point. Informed Consent: The patient's anesthetic plan and its attendant risks and benefits were discussed with the patient/family/POA. Questions were solicited and answers provided to the satisfaction of the patient/family/POA.
--- NOTE | 2025-02-22 07:46 | PM.IMHP ---
H&P: HPI History of Present Illness Date/Time: 02/22/25 07:46 Chief Complaint: Screening colonoscopy Narrative: This is the patient's first colonoscopy. 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 Her grandfather and an uncle and several other members of her family has Sabillon syndrome related neoplasms. Review of Systems Review of Systems: All systems reviewed & are unremarkable except as noted in HPI and below PMFSH Past Medical History Medical History Neuritis of left ankle Right ankle sprain Hip bursitis, left Otalgia of both ears Nasal obstruction Hypertrophy of both inferior nasal turbinates Nasal septal deviation Broken foot Left PVC (premature ventricular contraction) Heart beat abnormality Chest tightness SOB (shortness of breath) on exertion Wears glasses Lightheadedness Hip pain Trochanteric bursitis of right hip Actinic keratoses Nasopharyngitis Cerebrovascular accident (CVA) Dysfunctional gallbladder Endometriosis of peritoneum Epigastric abdominal pain Gastroesophageal reflux disease without esophagitis History of CVA (cerebrovascular accident) embolic: tte ( 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 no evidence of hypersomnia Anemia Cardiac segmental configuration with atrial configuration unknown, ventricular D-loop, and inverted normally aligned great arteries Adenomyosis Stroke Jul 2010; right-sided weakness and expressive aphasia; L frontal lobe, R frontal, L temp-occipital lobes Left ventricular noncompaction Surgical History Surgical History S/P cubital tunnel release L H/O colonoscopy H/O endoscopy H/O cardiac radiofrequency ablation [place] teeth removed H/O exploratory laparotomy Family History Family History Father Hypertension Patient's father is in good health Grandparent Carcinoma of colon Diabetes mellitus Endometrial cancer Breast cancer Sibling Patient's brother is in good health Mother Family history of gynecological problem Other Brain cancer Cerebrovascular accident Heart disease Skin cancer Social History Social History Smoking status: Never smoker Second hand tobacco smoke exposure: No Alcohol intake: current Drinks per week: 1 Alcohol use details: drinks wine and vodka Substance use: never Substance use type: does not use Lack of Transportation: No Lack of Food: Never True Current Housing: I Have Housing Concerned About Future Housing: No Difficulty Paying Gas/Electric Bills: No Difficulty Paying for Meds: No Currently Unemployed: No Education: Associate Degree Difficulty w/ Childcare or Family Care: No Living arrangements: alone Occupation/Education: occupation 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 Gender identity (if verbalized by the patient): Female Spiritual care concerns: No Meds Home Medications and Allergies Home Medications ?Medication ?Instructions ?Recorded ?Confirmed ?Type lisinopril 10 mg tablet 10 mg PO DAILY 08/23/19 02/22/25 History rivaroxaban 20 mg tablet (Xarelto) 20 mg PO DAILY 08/23/19 02/22/25 History fluticasone propionate 50 2 spray intranasal BID #16 mL 09/25/21 02/22/25 Rx mcg/actuation nasal spray,suspension (Flonase Allergy Relief) sotalol 80 mg tablet 80 mg PO BID 11/18/21 02/22/25 History levonorgestrel 17.5 mcg/24 hr (up 1 device intrauterine DAILY 04/07/22 02/22/25 History to 5 yrs) 19.5mg intrauterine device (Kyleena) hyoscyamine sulfate 0.125 mg 0.125 mg PO QID PRN ibsd 05/27/23 02/08/25 History disintegrating tablet diazepam 5 mg tablet (Valium) 5 mg PO TID PRN spasms #30 tabs 02/24/24 02/08/25 Rx hydrocodone 5 mg-acetaminophen 325 1 tablet PO Q6H PRN pain #30 tabs 02/24/24 02/08/25 Rx mg tablet epinephrine 0.3 mg/0.3 mL 0.3 mg (0.3 mL) IM ONCE #2 ea 04/08/24 02/08/25 Rx injection, auto-injector (EpiPen) gabapentin 300 mg capsule 300 mg PO TID #270 caps 11/29/24 02/22/25 Rx doxycycline monohydrate 100 mg 100 mg PO ONCE #42 tab-caps 01/24/25 02/08/25 Rx capsule typhoid vaccin,live,attenuated 2 See Rx Instructions PO .COMPLEX #4 01/24/25 02/08/25 Rx billion unit capsule,delayed caps release (Vivotif) lidocaine 5 % topical patch 1 patch topical DAILY PRN pain 02/08/25 02/08/25 History rosuvastatin 10 mg tablet 10 mg PO DAILY 02/08/25 02/22/25 History Allergies Allergy/AdvReac Type Severity Reaction Status Date / Time No Known Allergies Allergy Verified 02/22/25 07:05 Vital Signs Vital Signs - 24 hr 02/22/25 06:58 Temperature 97.6 F Pulse Rate 60 Respiratory Rate 18 Blood Pressure 110/69 Pulse Oximetry 100 Oxygen Delivery Room Air Exam Const: General: cooperative and healthy appearing Resp: Effort & Inspection: normal respiratory effort and able to speak in complete sentences Auscultation: clear to auscultation bilaterally Cardio: Rate: regular rate Rhythm: regular rhythm GI: Inspection: normal to inspection GI Palp: No No hepatosplenomegaly present Auscultation: normal bowel sounds Rectal Exam: deferred Skin: General skin exam: normal color Psych: Appearance: grossly normal Mental Status: mental status grossly normal Assessment and Plan Assessment and plan (1) Family history of colon cancer: Code(s): Z80.0 - Family history of malignant neoplasm of digestive organs Status: Acute Assessment and Plan: The patient is deemed a good candidate for the procedure. Consent signed. Will proceed.
[2025-02-22 08:12] VITALS: BP 95/52; PULSE 67; RESP 18; O2SAT 100
[2025-02-22 08:22] VITALS: BP 97/62; PULSE 53; RESP 20; O2SAT 99
[2025-02-22 08:32] VITALS: BP 111/68; PULSE 55; RESP 20; O2SAT 99
== END 2025-02-22 08:49 | disposition home or self-care (01) ==
PROVIDERS: Anesthesiology; PCP Family Medicine; Referring Provider Family Medicine; Visit Provider Internal Medicine Gastroenterology
PROC: 0DJD8ZZ Inspection of Lower Intestinal Tract, Via Natural or Artificial Opening Endoscopic (ICD-10-PCS; CPT 45378; principal; 2025-02-22 08:00)
DX: Z12.11 Encounter for screening for malignant neoplasm of colon (principal); E78.5 Hyperlipidemia, unspecified; K21.9 Gastro-esophageal reflux disease without esophagitis; G47.10 Hypersomnia, unspecified; D64.9 Anemia, unspecified; K82.8 Other specified diseases of gallbladder; N80.30 Endometriosis of pelvic peritoneum, unspecified; N80.03 Adenomyosis of the uterus; I49.3 Ventricular premature depolarization; I49.9 Cardiac arrhythmia, unspecified; L57.0 Actinic keratosis; E66.9 Obesity, unspecified; Z68.34 Body mass index [BMI] 34.0-34.9, adult; Z79.01 Long term (current) use of anticoagulants; Z79.891 Long term (current) use of opiate analgesic; Z98.890 Other specified postprocedural states; Z86.79 Personal history of other diseases of the circulatory system; Z86.73 Personal history of transient ischemic attack (TIA), and cerebral infarction without residual deficits; Z80.0 Family history of malignant neoplasm of digestive organs; Z80.3 Family history of malignant neoplasm of breast; Z80.8 Family history of malignant neoplasm of other organs or systems; Z84.0 Family history of diseases of the skin and subcutaneous tissue; Z80.49 Family history of malignant neoplasm of other genital organs; Z82.49 Family history of ischemic heart disease and other diseases of the circulatory system
CPT/HCPCS: 45378; J2003; J2704; J7120

== ENCOUNTER 2025-04-11 00:34 | Day surgery (SDC) | payer OTHER, SELFPAY ==
--- OUTSIDE RECORDS SUMMARY | 2006-05-19 12:00 | XMS_ITS | Continuity of Care Document ---
Author Organization [facility] Address [address] [facility] [address] [place] [address] Phone Care Team Providers Care Sem Manager Name Role Phone Best OD, Rigo Unavailable Unavailable Advance Directives Directive Yes / No Effective Date File Name No Information Encounters Encounter Description Practice Location Reason(s) For Visit Diagnoses Date Provider Providers Copied on Encounter [facility], [address], [place], [place], [id number], [place] tel:[phone] [facility] No Information Oct-0 3-200 6 Best OD Rigo. [address] , [address], [place], [address], [place]. tel:[phone] Family History Family Member Type Diagnosis Age At Onset No Information Payers Payer name Insurance type Covered republican ID Authoriza tion(s) No Information Social History Type Description Quantity Date Captured Comments Sex Female Smoking Status No Information Chief Complaint And Reason For Visit No Information Reason For Referral Reason For Referral No Information History Of Present Illness Encounter Date Complaint History Of Prese nt Illness No Information Functional Status Date Functional Assessmen t No Information Instructions Date Instruction Additional Infor mation No Information Assessments Type Assessment Date No Information Patient Care Teams Name Effective Dates (start - stop) Status Members No Information
[2025-03-31 14:37] VITALS: BMI 32.5
--- NOTE | 2025-03-31 14:52 | PC.NURSE ---
Spoke with patient regarding medication Xarelto. Patient verbalizes understanding that the last dose is to be taken on 04/07/25 and the Endoscopist will instruct them when to restart after the procedure.
--- OUTSIDE RECORDS SUMMARY | 2025-04-11 00:36 | XMS_ITS | Clinical Summary ---
Author Organization [facility] [employer] [place] Address [address] [place] [address] Care Team Providers Care Operational Test Mechanic Name Role Phone Malena Jordan MD Primary Care Provider [phone] Allergies No known active allergies Medications XARELTO 20 mg Tablet 10/19/19 18 Active sotaloL (BETAPACE) 80 mg tablet Take 1 Tablet by mouth 2 times daily. 05/26/20 22 Active INTRAUTERINE DEVICE, IUD, INTRAUTERINE by Intrauterine route. Active fluticasone furoate (ARNUITY) 100 mcg/actuation inhaler Take 1 Puff by inhalation daily. Per bridge builder 01/31/20 23 Active HYDROcodone-acetam inophen (NORCO) 5-325 [...] (ASTELIN) 137 mcg/actuation nasal spray Administer 1 [place] in each nostril daily. Active EPINEPHrine (EPIPEN) 0.3 mg/0.3 mL Auto-Injector 04/08/20 24 Active lisinopriL (PRINIVIL) 10 mg tabletIndications: Non-compaction cardiomyopathy (CMS/HCC) Take 0.5 Tablets (5 mg) by mouth 2 times daily. 90 Tablet 01/17/20 25 Active fluticasone propionate (FLONASE) 50 mcg/spray [place], Suspension nasal inhalerIndications :Seasonal allergic rhinitis due to pollen Administer 2 Sprays in each nostril daily. 48 Gram 01/17/20 25 Active Active Problems Problem Noted Date Diagnosed Date Family history of Sabillon synd ro-- mother is carrier. pt testing pending. 01/16/2025 Obesity (BMI 30.0-34.9) 01/16/2025 Cubital tunnel syndrome on left 01/30/2023 Overview (01/30/2023): treated by pain mgmt at [facility] and with PT. s/p nerve transposition. 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 Hall, polymerization oven operator. Irritable bowel syndrome with diarrhea 3 Paroxysmal [...] Encounters Date Type Department Care Team Description 04/04/2025 External Device Data ST[facility] ABSTRACTION Provider, Abstract 01/17/2025 Results Follow-Up [facility] at [place] [address] [place] [address] Emeli Segundo ANP TSH, LIPID PANEL, COMPREHENSIVE METABOLIC PANEL, CBC WITH DIFFERENTIAL 01/16/2025 9:00 AM CDT Office Visit [facility] at [place] [address] [address] [place] [address] Emeli Segundo, ARMANDO Obesity (BMI 30.0-34.9) (Primary Dx); Seasonal allergic rhinitis due to pollen; Non-compaction cardiomyopathy (CMS/HCC); Pain of left breast; Encounter for screening mammogram for malignant neoplasm of breast; Family history of Sabillon syndrome-- mother is carrier. 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 Gender Identity Not on file Sexual Orientation [...] Description 04/25/2025 9:30 AM CDT Office Visit [facility] at [employer] [address] [place] [address] Emeli Segundo, ANP [address] [place] [address] Health Maintenance Due Date Last Done Comments Pre-Diabetes and Diabetes Screening 1989 HPV VACCINES (1 - 3-dose SCD M series) 2016 HPV/Cotest (21-29) 12/07/2022 12/07/2017 HPV/Cotest (30-65) 12/07/2022 12/07/2017 CERVICAL CANCER SCREENING 07/17/2024 PAP SMEAR 07/17/2024 07/17/2021 (Prev iously completed), 12/07/2017, 07/17/2016 (Previously completed) INFLUENZA VACCINE (#1) 2025 DTAP/TDAP/TD VACCINES (7 - T d or Tdap) 12/08/2027 12/07/2017, 04/07/2002, 03/25/1993, Additional history exists HEPATITIS B VACCINES Completed 08/23/2004, 10/28/2002, 09/13/2002 Procedures Procedure Name Priority Date/Time Associated Diagnosis [...] 3.8 - 10.8 Thousand/ uL [facility] RBC 4.57 3.80 - 5.10 Million/u L [facility] HEMOGLOBIN 13.7 11.7 - 15.5 g/dL [...] RDW 13.0 11.0 - 15.0 % [facility] aCrd PLATELETS 206 140 - 400 Thousand/ uL [facility] MPV 11.5 7.5 - 12.5 fL [facility] NEUTROPHIL ABSOLUTE 2,504 1,500 - 7,800 cells/uL [facility] LYMPHOCYTE ABSOLUTE 1,092 850 - 3,900 cells/uL [facility] MONOCYTE ABSOLUTE 304 200 - 950 cells/uL [facility] EOSINOPHIL ABSOLUTE 60 15 - 500 cells/uL [facility] BASOPHILS ABSOLUTE 40 0 - 200 cells/uL [facility] NEUTROPHIL 62.6 % [facility] LYMPHOCYTES 27.3 % [facility] MONOCYTE 7.6 % [facility] EOSINOPHILS 1.5 % [facility] BASOPHILS 1.0 % [facility] Comment: Test Performed at: [facility] [place] [address] [address] [address] MariluArmand Lala Blood 01/16/2025 9:35 AM CDT 01/17/2025 2:48 AM CDT Emeli Segundo [facility] HEMATOLOGY ORDERABLES Final Result [facility] [phone] [place] [address] [address] [address] * TSH (01/16/2025 9:35 AM CDT) TSH 0.80 mIU/L [facility] [employer] Comment: Reference Range > or = 20 Years 0.40-4.50 Ranges First trimester 0.26-2.66 Second trimester 0.55-2.73 Third trimester 0.43-2.91 Test Performed at: [place] [address] [address] [address] MariluArmand Lachelle Lala Blood 01/16/2025 9:35 AM CDT 01/17/2025 2:48 AM CDT Emeli Zeng Segundo [facility] CHEMISTRY ORDERABLES Final R esult [facility] [phone] [facility] [place] [address] [address] [phone] * (ABNORMAL) LIPID PANEL (01/16/2025 9:35 AM CDT) CHOLESTEROL 260(H) <200 mg/dL [facility] HDL 56 > OR = 50 mg/dL [facility] TRIGLYCERIDE 125 <150 mg/dL [facility] LDL CALCULATED 178(H) mg/dL (calc) [facility] [facility] Comment: Reference range: <100 Desirable range <100 mg/dL for primary prevention; <70 mg/dL for patients with CHD or diabetic patients with > or = 2 CHD risk factors. LDL-C is now calculated using the Sb-Fly calculation, which is a validated novel method providing better accuracy than the Friedewald equation in the estimation of LDL-C. Sb CACERES et al. JASPAL. 2013;310(19): 2631-6879 (http://education.Latio.Mister Mario/faq/UUT950) CHOL/HDL RATIO 4.6 <5.0 (calc) [facility] Card NON-HDL CHOLESTEROL 204(H) <130 mg/dL (calc) [facility] [employer] [facility] Card Comment: For patients with diabetes plus 1 major ASCVD risk factor, treating to a non-HDL-C goal of <100 mg/dL (LDL-C of <70 mg/dL) is considered a therapeutic option. Test Performed at: [place] [address] [address] [address] MariluCiciReshma Larose Vo Blood 01/16/2025 9:35 AM CDT 01/17/2025 2:48 AM CDT us Emeli Zeng Segundo ANP CHEMISTRY ORDERABLES Final R esult [facility] [phone] [facility] [place] [address] [address] [phone] * COMPREHENSIVE METABOLIC PANEL (01/16/2025 9:35 AM CDT) GLUCOSE 91 65 - 99 mg/dL [facility]aden Kyaw Comment: Fasting reference interval BUN 10 7 - 25 mg/dL [facility] Card CREATININE 0.75 0.50 - 0.97 mg/dL [facility] GFR 106 > OR = 60 mL/min/1. 73m2 [facility] BUN/CREAT RATIO SEE NOTE: (calc) [facility] [employer] Comment: Not Reported: BUN and Creatinine are within reference range. SODIUM 139 135 - 146 mmol/L [facility] POTASSIUM 4.1 3.5 - 5.3 mmol/L [facility] Card CHLORIDE 106 98 - 110 mmol/L Melissa [facility] asiya Kyaw CO2 27 20 - 32 mmol/L [facility] CALCIUM 9.9 8.6 - 10.2 mg/dL [facility] TOTAL PROTEIN 6.8 6.1 - 8.1 g/dL Melissa [facility] braden Kyaw ALBUMIN 4.6 3.6 - 5.1 g/dL Melissa CadigoS asiya Kyaw GLOBULIN 2.2 1.9 - 3.7 g/dL (calc) [facility] barden Kyaw ALBUMIN/GLOBULIN RATIO 2.1 1.0 - 2.5 (calc) [facility] Card BILIRUBIN TOTAL 0.8 0.2 - 1.2 mg/dL [facility]iya Card ALKALINE PHOSPHATASE 52 31 - 125 U/L [facility]iya Card AST 17 10 - 30 U/L [facility] ALT 17 6 - 29 U/L [facility] Card Comment: Test Performed at: [place] [address] [address] [phone] Hansel Larose Vo Blood 01/16/2025 9:35 AM CDT 01/17/2025 2:48 AM CDT Emeli Sue Sanya [facility] CHEMISTRY ORDERABLES Final R esult [facility] [phone] [facility] [address] [place] [address] * CERV/VAG CYTOPATH, THIN PREP SALES SERVICE MANAGER AND HPV (12/07/2017 12:00 AM CDT) DIAGNOSIS [...] false-positive and false-negative reports do occur. CYTOLOGY REPACK ROOM WORKER METHODOLOGY Comment [facility] Comment: This liquid based ThinPrep(R) pap test was screened with the use of an image guided system. HPV HIGH RISK DETECTION Negative Negative [facility] Comment: This high-risk HPV test detects thirteen high-risk types (16/18/31/33/35/39/45/51/52/56/58/59/68) without differentiation. 12/07/2017 12/07/2017 Narrative [facility] - 12/11/2017 3:37 AM CDT Performed at: - [facility] [place], [place] [id number] Pad Tufter: Carlota Limon MD, Phone: [phone] Performed at: 02 - [facility] [address] [place] [id number] Pad Tufter: Carlota Limon MD, Phone: [phone] Specimen Comment: No. of containers..01 ThinPrep Vial Historical Provider PATHOLOGY/CYTOLOGY ORDERABLE S Final Result [facility] from Last 3 Months or Most Recently Relevant to Health Maintenance Insurance ALLEGIAN OPEN ACCESS * Guarantor: [employer] TECHNOLOGY Account Type Relation to Patient Date of Phone Billing Address Corporate Employer ATTN: [employer]ALEY [employer] [address] [address] Care Teams Operational Test Mechanic Relationship Specialty Start Date End Date Malena Jordan MD PCP - General Family Practice 07/24/22
--- NOTE | 2025-04-11 08:46 | WPDANESEPPF ---
Anes - Initial Pre Proc Eval Procedure: Operation Date: 04/11/25 13:00 Proposed Procedures p Esophagogastroduodenoscopy - Don Vazquez MD Date/Time: 04/11/25 08:46 Surgeon: Don Vazquez MD Pre Op Diagnosis: Gastro-esophageal reflux disease without esophagit Patient Data Age: 35 Gender: F Height: 1.7 m Weight: 94.4 kg Allergies Allergy/AdvReac Type Severity Reaction Status Date / Time No Known Allergies Allergy Verified 04/11/25 11:50 Home Medications ?Medication ?Instructions ?Recorded ?Confirmed ?Type lisinopril 10 mg tablet 5 mg PO BID 08/23/19 04/11/25 History rivaroxaban 20 mg tablet (Xarelto) 20 mg PO DAILY 08/23/19 04/11/25 History fluticasone propionate 50 2 spray intranasal BID #16 mL 09/25/21 04/11/25 Rx mcg/actuation nasal spray,suspension (Flonase Allergy Relief) sotalol 80 mg tablet 80 mg PO BID 11/18/21 04/11/25 History levonorgestrel 17.5 mcg/24 hr (up 1 device intrauterine DAILY 04/07/22 03/31/25 History to 5 yrs) 19.5mg intrauterine device (Kyleena) hyoscyamine sulfate 0.125 mg 0.125 mg PO QID PRN ibsd 05/27/23 03/31/25 History disintegrating tablet diazepam 5 mg tablet (Valium) 5 mg PO TID PRN spasms #30 tabs 02/24/24 03/31/25 Rx hydrocodone 5 mg-acetaminophen 325 1 tablet PO Q6H PRN pain #30 tabs 02/24/24 03/31/25 Rx mg tablet epinephrine 0.3 mg/0.3 mL 0.3 mg (0.3 mL) IM ONCE #2 ea 04/08/24 03/31/25 Rx injection, auto-injector (EpiPen) gabapentin 300 mg capsule 300 mg PO TID #270 caps 11/29/24 04/11/25 Rx doxycycline monohydrate 100 mg 100 mg PO ONCE #42 tab-caps 01/24/25 03/31/25 Rx capsule lidocaine 5 % topical patch 1 patch topical DAILY PRN pain 02/08/25 03/31/25 History rosuvastatin 10 mg tablet 10 mg PO DAILY 02/08/25 04/11/25 History eluxadoline 100 mg tablet (Viberzi) 100 mg PO BID 3 months #180 tabs 03/01/25 03/31/25 Rx eluxadoline 100 mg tablet (Viberzi) 100 mg Tablet#4 Samples 03/01/25 03/31/25 Sample Patient hx anesthesia problems: none Family hx anesthesia problems: none Results Review: All pre-operative results and documents have been reviewed as part of the pre-operative evaluation. [facility] Past Medical History Medical History (Updated 03/01/25 @ 15:06 by Daja Edwards APN-C) Neuritis of left ankle Right ankle sprain Hip bursitis, left Otalgia of both ears Nasal obstruction Hypertrophy of both inferior nasal turbinates Nasal septal deviation Broken foot Left PVC (premature ventricular contraction) Heart beat abnormality Chest tightness SOB (shortness of breath) on exertion Wears glasses Lightheadedness Hip pain Trochanteric bursitis of right hip Actinic keratoses Nasopharyngitis Cerebrovascular accident (CVA) Dysfunctional gallbladder Endometriosis of peritoneum Epigastric abdominal pain Gastroesophageal reflux disease without esophagitis History of CVA (cerebrovascular accident) 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 sleep latency normal. no evidence of hypersomnia Anemia Cardiac segmental configuration with atrial configuration unknown, ventricular D-loop, and inverted normally aligned great arteries Adenomyosis Stroke Jul 2010; right-sided weakness and expressive aphasia; L frontal lobe, R frontal, L temp-occipital lobes Left ventricular noncompaction Surgical History Surgical History S/P cubital tunnel release L H/O colonoscopy H/O endoscopy H/O cardiac radiofrequency ablation [place] teeth removed H/O exploratory laparotomy Family History Family History Father Hypertension Patient's father is in good health Grandparent Carcinoma of colon Diabetes mellitus Endometrial cancer Breast cancer Sibling Patient's brother is in good health Mother Family history of gynecological problem Other Brain cancer Cerebrovascular accident Heart disease Skin cancer Social History Social History Smoking status: Never smoker Second hand tobacco smoke exposure: No Alcohol intake: current Drinks per week: 1 Alcohol use details: drinks wine and vodka Substance use: never Substance use type: does not use Lack of Transportation: No Lack of Food: Never True Current Housing: I Have Housing Concerned About Future Housing: No Difficulty Paying Gas/Electric Bills: No Difficulty Paying for Meds: No Currently Unemployed: No Education: Associate Degree Difficulty w/ Childcare or Family Care: No Living arrangements: alone Occupation/Education: occupation 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 Informed Consent: The patient's anesthetic plan and its attendant risks and benefits were discussed with the patient/family/POA. Questions were solicited and answers provided to the satisfaction of the patient/family/POA.
[2025-04-11 11:52] VITALS: BP 117/74; PULSE 55; RESP 16; TEMP 36.6; O2SAT 100; BMI 32.3
[2025-04-11 11:57] LABS: BEDSIDEPREGUCG Negative (Negative)
[2025-04-11] MEDS: LACTATED RINGERS 1,000 ML 150 ML IV CONT (12:02)
[2025-04-11] MEDS: SIMETHICONE ORAL SUSPENSION 20 MG/0.3 ML 30 ML BOTTLE 1.8 ML PO (12:03)
--- NOTE | 2025-04-11 12:47 | PM.IMHP ---
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 She had been complaining of intermittent Dyspepsia and is now referred for EGD. Review of Systems Review of Systems: All systems reviewed & are unremarkable except as noted in HPI and below [facility] Past Medical History Medical History (Updated 03/01/25 @ 15:06 by Daja Edwards, [employer]) Neuritis of left ankle Right ankle sprain Hip bursitis, left Otalgia of both ears Nasal obstruction Hypertrophy of both inferior nasal turbinates Nasal septal deviation Broken foot Left PVC (premature ventricular contraction) Heart beat abnormality Chest tightness SOB (shortness of breath) on exertion Wears glasses Lightheadedness Hip pain Trochanteric bursitis of right hip Actinic keratoses Nasopharyngitis Cerebrovascular accident (CVA) Dysfunctional gallbladder Endometriosis of peritoneum Epigastric abdominal pain Gastroesophageal reflux disease without esophagitis History of CVA (cerebrovascular accident) embolic: tte ( 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 no evidence of hypersomnia Anemia Cardiac segmental configuration with atrial configuration unknown, ventricular D-loop, and inverted normally aligned great arteries Adenomyosis Stroke Jul 2010; right-sided weakness and expressive aphasia; L frontal lobe, R frontal, L temp-occipital lobes Left ventricular noncompaction Surgical History Surgical History S/P cubital tunnel release L H/O colonoscopy H/O endoscopy H/O cardiac radiofrequency ablation [place] teeth removed H/O exploratory laparotomy Family History Family History Father Hypertension Patient's father is in good health Grandparent Carcinoma of colon Diabetes mellitus Endometrial cancer Breast cancer Sibling Patient's brother is in good health Mother Family history of gynecological problem Other Brain cancer Cerebrovascular accident Heart disease Skin cancer Social History Social History Smoking status: Never smoker Second hand tobacco smoke exposure: No Alcohol intake: current Drinks per week: 1 Alcohol use details: drinks wine and vodka Substance use: never Substance use type: does not use Lack of Transportation: No Lack of Food: Never True Current Housing: I Have Housing Concerned About Future Housing: No Difficulty Paying Gas/Electric Bills: No Difficulty Paying for Meds: No Currently Unemployed: No Education: Associate Degree Difficulty w/ Childcare or Family Care: No Living arrangements: alone Occupation/Education: occupation 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 Gender identity (if verbalized by the patient): Female Spiritual care concerns: No Meds Home Medications and Allergies Home Medications ?Medication ?Instructions ?Recorded ?Confirmed ?Type lisinopril 10 mg tablet 5 mg PO BID 08/23/19 04/11/25 History rivaroxaban 20 mg tablet (Xarelto) 20 mg PO DAILY 08/23/19 04/11/25 History fluticasone propionate 50 2 spray intranasal BID #16 mL 09/25/21 04/11/25 Rx mcg/actuation nasal spray,suspension (Flonase Allergy Relief) sotalol 80 mg tablet 80 mg PO BID 11/18/21 04/11/25 History levonorgestrel 17.5 mcg/24 hr (up 1 device intrauterine DAILY 04/07/22 03/31/25 History to 5 yrs) 19.5mg intrauterine device (Kyleena) hyoscyamine sulfate 0.125 mg 0.125 mg PO QID PRN ibsd 05/27/23 03/31/25 History disintegrating tablet diazepam 5 mg tablet (Valium) 5 mg PO TID PRN spasms #30 tabs 02/24/24 03/31/25 Rx hydrocodone 5 mg-acetaminophen 325 1 tablet PO Q6H PRN pain #30 tabs 02/24/24 03/31/25 Rx mg tablet epinephrine 0.3 mg/0.3 mL 0.3 mg (0.3 mL) IM ONCE #2 ea 04/08/24 03/31/25 Rx injection, auto-injector (EpiPen) gabapentin 300 mg capsule 300 mg PO TID #270 caps 11/29/24 04/11/25 Rx doxycycline monohydrate 100 mg 100 mg PO ONCE #42 tab-caps 01/24/25 03/31/25 Rx capsule lidocaine 5 % topical patch 1 patch topical DAILY PRN pain 02/08/25 03/31/25 History rosuvastatin 10 mg tablet 10 mg PO DAILY 02/08/25 04/11/25 History eluxadoline 100 mg tablet (Viberzi) 100 mg PO BID 3 months #180 tabs 03/01/25 03/31/25 Rx eluxadoline 100 mg tablet (Viberzi) 100 mg Tablet#4 Samples 03/01/25 03/31/25 Sample Allergies Allergy/AdvReac Type Severity Reaction Status Date / Time No Known Allergies Allergy Verified 04/11/25 11:50 Vital Signs Vital Signs - 24 hr 04/11/25 11:52 Temperature 97.9 F Pulse Rate 55 L Respiratory Rate 16 Blood Pressure 117/74 Pulse Oximetry 100 Oxygen Delivery Room Air Exam Const: General: cooperative and healthy appearing Resp: Effort & Inspection: normal respiratory effort and able to speak in complete sentences Auscultation: clear to auscultation bilaterally Cardio: Rate: regular rate Rhythm: regular rhythm GI: Inspection: normal to inspection GI Palp: No No hepatosplenomegaly present Auscultation: normal bowel sounds Rectal Exam: deferred Skin: General skin exam: normal color Psych: Appearance: grossly normal Mental Status: mental status grossly normal Assessment and Plan Assessment and plan (1) Family history of Sabillon syndrome: Code(s): Z80.0 - Family history of malignant neoplasm of digestive organs Status: Acute Assessment and Plan: The patient is deemed a good candidate for the procedure. Consent signed. Will proceed.
--- NOTE | 2025-04-11 12:54 | S_PTH ---
PATIENT: Linda Mack LOC: [facility] U#:[id number] AGE/SX: 35/F ROOM: RE04/11/[address]: Don Vazquez MD : 1990 BED: DIS: 04/11/2025 SPEC #: [id number] RECD: 04/11/25 13:33 STATUS: ALBERTA REQ #: [id number] CONNIE: 04/11/25 12:[address]: Don Vazquez DEPT: [facility] Surgical RECD BY: Laxmi Nguyen ENTERED: 04/11/25 13:34 SP TYPE: Surgical OTHR DR: Malena Jordan MD Tissues: A - Gastric Biopsy B - Gastric Biopsy Procedures: Hematoxylin and Eosin Stain Gross and Microscopic Level 4
[2025-04-11 12:55] VITALS: BP 91/45; PULSE 73; RESP 20; O2SAT 98
[2025-04-11 13:05] VITALS: BP 99/61; PULSE 50; RESP 20; O2SAT 100
[2025-04-11 13:15] VITALS: BP 101/62; PULSE 50; RESP 17; O2SAT 100
== END 2025-04-11 13:32 | disposition home or self-care (01) ==
PROVIDERS: Anesthesiology; PCP Family Medicine; Referring Provider Nurse Practitioner Family; Visit Provider Internal Medicine Gastroenterology
PROC: 0DJ08ZZ Inspection of Upper Intestinal Tract, Via Natural or Artificial Opening Endoscopic (ICD-10-PCS; CPT 43239; principal; 2025-04-11 13:00)
DX: K21.9 Gastro-esophageal reflux disease without esophagitis (principal); D64.9 Anemia, unspecified; I49.3 Ventricular premature depolarization; I49.9 Cardiac arrhythmia, unspecified; L57.0 Actinic keratosis; N80.399 Endometriosis of the pelvic peritoneum, other specified sites, unspecified depth; G47.10 Hypersomnia, unspecified; E66.9 Obesity, unspecified; Z68.32 Body mass index [BMI] 32.0-32.9, adult; Z79.891 Long term (current) use of opiate analgesic; Z79.01 Long term (current) use of anticoagulants; Z98.890 Other specified postprocedural states; Z15.09 Genetic susceptibility to other malignant neoplasm; Z86.79 Personal history of other diseases of the circulatory system; Z86.73 Personal history of transient ischemic attack (TIA), and cerebral infarction without residual deficits; Z80.3 Family history of malignant neoplasm of breast; Z80.0 Family history of malignant neoplasm of digestive organs; Z80.49 Family history of malignant neoplasm of other genital organs; Z84.0 Family history of diseases of the skin and subcutaneous tissue; Z80.8 Family history of malignant neoplasm of other organs or systems; Z82.49 Family history of ischemic heart disease and other diseases of the circulatory system
CPT/HCPCS: 43239; 88305; J2003; J2704; J7120

== ENCOUNTER 2025-06-14 08:39 | Outpatient (CLI) | payer OTHER, SELFPAY ==
--- NOTE | ~2025-06-14 | MR_ITS ---
EXAMINATION: MR knee RT wo con DATE: 06/14/2025 09:39 INDICATION: Right knee pain TECHNIQUE: Magnetic resonance imaging (MRI) of the right knee was performed without intravenous contrast. Sequences included coronal PD-weighted FSE, coronal PD-weighted FS FSE, sagittal T2-weighted FSE, sagittal PD-weighted FS FSE and axial PD weighted fat saturated FSE. COMPARISON: None. FINDINGS: Medial compartment: Medial meniscus is normal. Articular cartilage is normal. Lateral compartment: Lateral meniscus is normal. Articular cartilage is normal. Patellofemoral compartment: Partial-thickness chondral fissuring involving up to 50% the cartilage thickness but without degenerative subchondral changes at the lateral patellar facet. Trochlear cartilage is normal. Ligaments and tendons: Anterior and posterior cruciate ligaments are normal. The medial collateral ligament and fibular collateral ligament complex are normal. The extensor mechanism is normal. The visualized medial and lateral hamstring tendons as well as the iliotibial band are normal. Fluid: Physiologic amount of fluid in the joint space. No loose osteochondral bodies identified. Osseous/other: Normal marrow signal. No fracture or pathologic marrow replacing process. IMPRESSION: 1. Partial-thickness chondral fissuring at the lateral patellar facet. Otherwise normal right knee MRI. Reviewed, dictated and finalized at location A. IMPRESSION: 1. Partial-thickness chondral fissuring at the lateral patellar facet. Otherwis e normal right knee MRI.
--- NOTE | ~2025-06-14 | XR_ITS ---
EXAMINATION: XR knee LT min 4V, 06/14/2025 8:45 CDT HISTORY: CHRONIC ANTERIOR LT KNEE PAIN WORSEN PAST 3 MONTHS COMPARISON: No comparisons available. Findings: No acute fracture or malalignment. No significant degenerative changes. Soft tissues unremarkable. Impression: No acute fracture or malalignment. Reviewed, dictated and finalized at location P. Impression: No acute fracture or malalignment.
== END 2025-06-14 08:40 | disposition home or self-care (01) ==
LOC: MICIMG 08:40
PROVIDERS: PCP Family Medicine; Visit Provider Student in an Organized Health Care Education/Training Program
DX: M25.561 Pain in right knee (principal); M25.562 Pain in left knee; G89.29 Other chronic pain
CPT/HCPCS: 73564; 73721